=== PATIENT | female | born 1965 | race African-American/Black ===

== ENCOUNTER 2020-06-18 11:45 | Outpatient (NON) | payer OTHER, SELFPAY ==
[2020-06-19 13:29] LABS: SARS-CoV-2 RNA PCR Negative
== END 2020-06-18 11:46 ==
LOC: ANHCOVIDDT 11:48
PROVIDERS: Visit Provider Family Medicine
DX: R68.89 Other general symptoms and signs (principal); Z20.822 Contact with and (suspected) exposure to COVID-19
CPT/HCPCS: C9803; U0003; U0005

== ENCOUNTER 2023-10-25 11:44 | Outpatient (CLI) | payer OTHER, SELFPAY ==
[2023-10-25 12:10] LABS: Hematocrit 40.2 % (37.0-47.0); Hemoglobin 13.2 g/dL (12.0-15.0); Mean Corpuscular HGB Conc 32.8 g/dl (32-36); Mean Corpuscular Hemoglobin 28.1 pg (26-34); Mean Corpuscular Volume 85.5 fl (80-100); Mean Platelet Volume 11.1 fl (7.4-10.4); Platelet Count Result 224 k/mm3 (150-375); Red Cell Distribution Width 13.7 % (11.5-14.5)
[2023-10-25 13:03] LABS: Albumin Level 4.3 g/dL (3.5-5.1); Anion Gap 7 mmol/L (4-12); Blood Urea Nitrogen 15 mg/dL (7-17); Calcium 9.2 mg/dL (8.4-10.2); Carbon Dioxide 27 mmol/L (22-30); Chloride 109 mmol/L (98-107); Estimated Glomerular Filt Rate > 60; Glucose 88 mg/dL (65-110); Potassium 3.7 mmol/L (3.4-5.0); Sodium 143 mmol/L (137-145)
[2023-10-26 00:45] LABS: Prealbumin 17.9 mg/dL (17.6-36.0)
[2023-10-26 03:00] LABS: Iron 89 ug/dL (37-170)
[2023-10-29 11:08] LABS: Vitamin B1 34 nmol/L (8-30)
== END 2023-10-25 11:45 | disposition home or self-care (01) ==
LOC: ANHLAB 11:48
PROVIDERS: Visit Provider Surgery Plastic and Reconstructive Surgery
DX: R63.4 Abnormal weight loss (principal)
CPT/HCPCS: 36415; 80048; 82040; 83540; 84134; 84425; 85027

== ENCOUNTER 2023-11-09 07:36 | Outpatient (CLI) | payer OTHER, SELFPAY ==
--- NOTE | 2023-11-09 07:49 | ECG_ITS ---
Test Date: 2023-11-09 08:02:28 Measurements Intervals [place] Rate: 57 P: 43 AR: 172 QRS: -14 QRSD: 105 T: 12 QT: 431 QTc: 422 Interpretive Statements SINUS BRADYCARDIA WITH SINUS ARRHYTHMIA POSSIBLE LEFT ATRIAL ENLARGEMENT [-0.1mV P WAVE IN V1/V2] LOW QRS VOLTAGE IN PRECORDIAL LEADS [QRS DEFLECTION < 1.0 mV IN CHEST LEADS] PATTERN CONSISTENT WITH PULMONARY DISEASE POSSIBLE LEFT VENTRICULAR HYPERTROPHY [VOLTAGE CRITERIA PLUS LAE OR QRS WIDENING] POSSIBLE SEPTAL MYOCARDIAL INFARCTION [30 ms Q WAVE IN V1/V2], OF INDETERMINATE AGE NONSPECIFIC T-WAVE ABNORMALITY ABNORMAL ECG No previous ECG available for comparison Electronically Signed On 11-09-2023 10:58:00 CDT by Maurisio Quevedo M.D.
== END 2023-11-09 07:37 | disposition home or self-care (01) ==
PROVIDERS: PCP Physician Assistant; Visit Provider Surgery Plastic and Reconstructive Surgery
DX: Z41.1 Encounter for cosmetic surgery (principal); R94.31 Abnormal electrocardiogram [ECG] [EKG]
CPT/HCPCS: 93005

== ENCOUNTER 2023-11-15 01:43 | Day surgery (SDC) | payer OTHER, SELFPAY ==
[2023-11-08 09:49] VITALS: BMI 39.3
--- NOTE | 2023-11-08 09:50 | PC.NURSE ---
Addendum entered by Mikhail Wu RN 11/08/23 10:21: We will need a urine specimen morning of surgery so don't use waiting room bathroom, wait until see a nurse. Original Note: Report to the Outpatient Waiting Room, entrance under the green pavilion located off [facility], at time _0600_ on date _[id number]_. Planned Procedure Time: _0730_. Time changes happen often and if your time is changed the preop area will call you the afternoon before. - You and your visitor will be asked to self-screen and do not enter if you have any COVID symptoms. - A mask is optional within the hospital at this time. Patients may have clear liquids (water, carbonated beverages, clear teas, apple juice) until 3 hours prior to surgery with a maximum of 20 ounces. - No food from midnight until time of surgery Take the following medications with a SIP of water the morning of surgery: ____None DO NOT STOP ANY OF YOUR OTHER PRESCRIPTION MEDICATIONS PRIOR TO SURGERY ?EXCEPT THE FOLLOWING Medications to discontinue per physician ___Multivitamin____ Date to take last dhiu___[phone] Please no make-up, nail arabic, hairspray, perfume, deodorant, or body powder the day of surgery. No jewelry (including any body piercings) or valuables the day of surgery, leave them at home. Please take a shower or bath the night before, or the morning of, surgery with an antibacterial soap. Wear comfortable, loose fitting clothing. - Jewelry must be removed prior to entering the operating room. Rings and piercings that are not removed may be cut off. - The hospital will not accept responsibility for valuables. - Please leave all valuables, including medications, at home the day of surgery. If you are going home after surgery, a licensed auto parts delivery driver must drive you home. - NO public transportation without another adult if you receive anesthesia. - We recommend that an adult stay with you for 24 hours following discharge. - We also recommend that you do not drive, make important decision, drink alcoholic beverages, or take any drugs that were not prescribed by your health care provider for at least 24 hours after your discharge time. Follow any additional instructions given to you from your surgeon. If you or anyone in your household have experienced Covid symptoms in the past week, please notify your surgeon or the nurse liaison at the phone number below for possible testing. Telephone instructions given to __Ani__and asked if any additional questions and then verbalized understanding. Patient advised to call surgeon office or pre surgery nurse liaison [phone] if any additional questions.
[2023-11-15] VITALS (17 sets, daily range): BP systolic 72–190; BP diastolic 44–101; PULSE 59–92; RESP 12–20; TEMP 36.1–36.4; O2SAT 94–100
--- NOTE | ~2023-11-15 | XR_ITS ---
EXAMINATION: XR fluoroscopy no charge DATE: 11/15/2023 10:25 INDICATION: Foreign body. TECHNIQUE: 2 intraoperative fluoroscopic views of the abdomen were obtained. I was not present. Fluor oscopy exposure time was 5 seconds. COMPARISON: None. FINDINGS: The first image demonstrates a needle overlying the lower chest. The second image demonstra christie removal of the needle. Multiple sunita are noted. IMPRESSION: 1. Foreign body status post removal. Reviewed, dictated and finalized at location A.
[2023-11-15 06:24] LABS: Urine Cotinine NEGATIVE
--- NOTE | 2023-11-15 06:46 | WPDANESEPPF ---
Anes - Initial Pre Proc Eval Procedure: Operation Date: 11/15/23 07:30 Proposed Procedures p Posterior Body Lift, - Bryce Villagran MD s Bra Roll Excision, - Bryce Villagran MD s Bilateral Medial Thigh Lift - Bryce Villagran MD Date/Time: 11/15/23 06:46 Surgeon: Bryce Villagran MD Pre Op Diagnosis: skin laxity Patient Data Age: 58 Gender: F Height: 1.68 m Weight: 110 kg Last Vital Signs Temp 97.4 F L 11/15/23 06:00 Pulse 59 L 11/15/23 06:00 BP 147/77 H 11/15/23 06:00 Pulse Ox 100 11/15/23 06:00 O2 Del Method Room Air 11/15/23 06:00 Allergies Allergy/AdvReac Type Severity Reaction Status Date / Time codeine Allergy Intermediate Rash Verified 11/15/23 06:11 aspirin AdvReac Mild Nausea and Verified 11/15/23 06:11 Vomiting Home Medications Medication Instructions Recorded Confirmed Type multivitamin 1 tablet PO DAILY 11/08/23 11/08/23 History Laboratory Tests 11/15/23 06:09 Cotinine Negative Patient hx anesthesia problems: post op nausea/vomiting Family hx anesthesia problems: none Results Review: All pre-operative results and documents have been reviewed as part of the pre-operative evaluation. [facility] Social History Social History Smoking status: Never smoker Living arrangements: with family Spiritual care concerns: No Anes - Eval Final PreProcedure Day of Procedure 11/15/23 06:46 Patient weight: obese Heart: regular rate and rhythm Lungs: clear to auscultation Airway: Mallampati scale and special considerations (Missing many in the post apsect, none loose. ) Neurological: alert and oriented Last oral intake: >/= 8 hours ASA classification: II Emergent: no Anesthetic plan: proceed Anesthesia type and monitoring: general ETT and standard monitoring Results Review: All pre-operative results and documents have been reviewed as part of the pre-operative evaluation. Active w walking, caring for children, no cp or sob. Informed Consent: The patient's anesthetic plan and its attendant risks and benefits were discussed with the patient/family/POA. Questions were solicited and answers provided to the satisfaction of the patient/family/POA.
[2023-11-15] MEDS: LACTATED RINGERS 1,000 ML 30 ML IV CONT ×2 (06:50→16:10)
[2023-11-15] MEDS: SCOPOLAMINE 1 MG PATCH 1 PATCH TRANSDERM (06:50)
--- NOTE | 2023-11-15 06:51 | WPDHPUPDATE1 ---
History and Physical Update Update Date/Time: 11/15/23 06:51 History and Physical has been reviewed, including an updated exam of the patient. There are NO changes in the patient's condition. Risks, benefits, and alternatives have been discussed and questions answered. Patient agrees to proceed with procedure.
--- NOTE | 2023-11-15 06:52 | W.PM.PROC2 ---
Procedure Note - Detailed Date of Procedure 11/15/23 Pre-op Diagnosis skin laxity Post-op Diagnosis Same Procedure Performed 1. Posterior body lift with suction lipectomy 2. Bra roll excision with suction lipectomy 3. Bilateral Medial thigh lift Surgeon Bryce Villagran MD Anesthesia General Findings Tissue removed: 2786.5 grams Lipoaspirate 2,500 cc Description of Procedure They are here today for the above procedures. History of abdominoplasty completed elsewhere. Previously and again today the risks, benefits, alternatives were discussed in extensive detail. I wanted them to be very realistic about the risks involved as well as expectations. We discussed limitations of the procedure and where she would still have excess. Discussed complexity given history of weight loss and BMI. We discussed aftercare and what to monitor for. I was very upfront about the risks of wound breakdown leading to loss of skin, open wounds, and need for additional procedures with permanent abdominal deformity. We discussed DVT/PE risks and management. Made sure answered all of their questions to their satisfaction today and consent was obtained. They were marked in the preoperative holding area with their verification. The patient was taken to the operating room. Anesthesia was provided by anesthesiology. A Miller catheter was started. Placed prone on the operating room table with care taken to protect from injury. Prepped and draped in a standard sterile fashion. A surgical time-out was taken. Stab incisions were made and tumescent solution was infiltrated. Once adequate time was allowed for hemostasis a 5mm basket and 3mm multi hole cannula were utilized to complete suction lipectomy based on S.A.F.E. technique in multiple planes and passes. Suction lipectomy continued to result based on pre-operative planning, intra-operative observation, and rolling pinch test which were in full agreement. Bra roll excision A 10 blade was used to make the upper incision and dissection was continued inferior elevating what we necessary for closure. I placed patient in slight jackknife position and excised intervening tissue. This was closed with 3 point suture with 2-0 Vicryl followed 2-0 PDO strattafix, 3-0 stratafix ,running subcuticular 4-0 Monocryl, and tissue glue. Laterally sunita were placed for turning. Posterior body lift A 10 blade was used to make the upper incision and dissection was continued inferior elevating what we necessary for closure. I placed patient in slight jackknife position and excised intervening tissue. This was closed with 3 point suture with 2-0 Vicryl followed 2-0 PDO strattafix, 3-0 stratafix ,running subcuticular 4-0 Monocryl, and tissue glue. Laterally sunita were placed for turning. Patient was then placed supine with care taken to protect from injury. Completion bra roll excision Continued excision to lateral border of breast based on planned future surgeries as discussed with the patient and her . This was closed with 3 point suture with 2-0 Vicryl followed 2-0 PDO strattafix, 3-0 stratafix ,running subcuticular 4-0 Monocryl, and tissue glue. Completion posterior body lift Continued excision to previous abdominoplasty scar. 15 Wilian drain was placed and fed posterior. This was closed with 3 point suture with 2-0 Vicryl followed 2-0 PDO strattafix, 3-0 stratafix ,running subcuticular 4-0 Monocryl, and tissue glue. Medial Thigh lift Stab incisions were made and I tumesced with a tumescent solution. Once adequate time for hemostasis suction lipectomy was with a 5 mm basket cannula based on S.A.F.E. technique. This was completed based on preoperative planning, intraoperative observation, and rolling pinch test which was in full agreement. I completely de-fatted the planned resection area and a strip avulsion technique was completed. Starting proximal to distal a 10 blade was used to excise the interve
[2023-11-15] MEDS: ceFAZolin 2 GM/D5W 50 ML 2 GM/50 ML BAG IVPB ×2 (07:31→11:29)
[2023-11-15] MEDS: TRANEXAMIC ACID 1,000MG/ISO100 1,000 MG/100 ML BAG 200 MG IVPB (07:42)
--- NOTE | 2023-11-15 10:34 | SUR.OPER ---
At 1015, personnel at surgical field noticed a suture needle had broken during closure. Needle was presumed to be patient's adipose tissue. Radiology was notified and a C-Arm portable X-Ray was taken. Needle was located during fluoroscopy. Surgeon retrieved suture needle piece from patient's tissue. Needle pieces were matched to ensure no pieces had been missed. C-Arm fluoroscopy confirmed no needle pieces were present in patient's tissue. A needle count was performed by Scrub and Nuclear Weapons Custodian and surgeon was notified of correct count. Patient's vitals were stable throughout search.
[2023-11-15] MEDS: LACTATED RINGERS IRRIG 1,000 ML, LIDOCAINE HCL 1% LOCAL INJ 50 ML, EPINEPHrine HCL INJ ... INFILTRATE (14:06)
[2023-11-15] MEDS: ceFAZolin SODIUM 1 GM VIAL IV PUSH (15:35)
--- NOTE | 2023-11-15 19:08 | SUR.PHASEI ---
RN tried to call anesthesia 2 times to inform about BP but the ELECTRIC DISTRIBUTION ENGINEER is in a .
[2023-11-15] MEDS: MEPERIDINE HCL INJ (*CRX) 50 MG/ML AMPUL 25 MG IV PUSH (19:20)
--- NOTE | 2023-11-15 19:46 | PC.NURSE ---
This patient arrived to room #288 via stretcher. Patient transferred to bed and educated on unit policies and procedures at this time. Call light given.
--- NOTE | 2023-11-15 19:56 | PC.NURSE ---
1955- patient reported being unable to drink from a straw and that this is her baseline. Cup without straw provided
[2023-11-15] MEDS: oxyCODONE/ACETAMINOPHEN (*CRX) 5-325 MG TABLET PO (21:01)
[2023-11-15] MEDS: DOCUSATE SODIUM 100 MG CAPSULE PO (21:02)
[2023-11-16] VITALS (7 sets, daily range): BP systolic 81–116; BP diastolic 48–68; PULSE 59–105; RESP 14–18; TEMP 37.2–38.5; O2SAT 98–100
--- NOTE | 2023-11-16 | PC.NURSE ---
0000- Patient refused scheduled PO Toradol and stated told her to only take Tylenol Educated patient on Dr's orders and patient still declined at this time. 0205- Patient called out requesting toradol be given, See MAR for further documentation.
[2023-11-16] MEDS: KETOROLAC 10 MG TABLET PO ×2 (02:05→09:08)
--- NOTE | 2023-11-16 02:44 | PC.NURSE ---
Midnight- went to assess pt with primary RN Leo, pt needing to get up oob to use bathroom. While pt was in bed, assessment was made ny myself and Leo RN- left inner thigh incision open approx 2 inches, adipose tissue exposed, also abdominal dressings were saturated with old red blood. Reinforced these areas with telfa guaze and paper tape. Pt up to bathroom with assist of two. Pt with somewhat confused speech, unable to understand at times. States pain was ok that her back was the main source of discomfort and that the pain was a nerve type of pain. Pt offered pain medication but declined at this time. Assisted pt back into bed after voiding. brush fabrication supervisor was called as well as nurse Cathie fuller to collaborate on pts condition. brush fabrication supervisor assessed pt and stated that she was not sure that pt was appropriate for this unit and that Dr. Null should be notified of pts condition. This RN called exchange and was called back after 2 calls placed a half an hour apart by Niya Gutiérrez cosmetic steam fitter supervisor maintenance/ pt attending ambulatory care- this RN explained that left inner thigh incision was open approx 2 inches to adiopose tissue. Niya stated this should not be open and instructed this RN to put a thin layer of vaseline over open area and place guaze on top with an maryam wrap to secure. Niya also stated that she would have Dr. Null round on this pt first in the am around [id number]. This RN also asked Niya if pt was ok to continue getting up oob with these extensive incisions and she stated yes, he wants her walking. Also informed Niya that pt is requesting IV fluids along with her po fluids. Niya stated that Dr. Null will not be ordering fluids on pt. this nurse, leo RN and Shamika RN performed wound care as instructed to pts left upper thigh/leg and leg. Thin layer vaseline applied to open area, covered with guaze and maryam wrap placed to secure. Pt stated she was ok after wound care performed. Will continue to monitor.
--- NOTE | 2023-11-16 04:00 | PC.NURSE ---
0400- Entered room at 0400 as Penelope RN called Rapid response on patient due to low BP and elevated T Patient was woken up out of sleep and initially slow to orient. 404 BP 116/68 manual Patient now A/Ox3 CUSTOMER SERVICE REPRESENTATIVE TEACHER assessing patient at this time 040 - BP 93/[address] Carina Nelson at bedside New orders received at this time for Stat CBC/BMP and 1L Bolus NS and to recheck BP once Bolus complete
[2023-11-16] MEDS: SODIUM CHLORIDE 0.9% IV 1,000 ML 999 ML IV CONT (04:10)
[2023-11-16 04:22] LABS: Basophils Percent Auto 0.3 % (0.2-1.2); Eosinophils Percent Auto 0.1 % (0-4.4); Hematocrit 28.4 % (37.0-47.0); Hemoglobin 9.2 g/dL (12.0-15.0); Immature Granulocyte Absolute 0.01 K/mm3 (0.00-0.031); Immature Granulocyte Percent A 0.1 % (0-0.5); Lymphocytes Absolute Auto 2.16 K/mm3 (0.9-3.2); Mean Corpuscular HGB Conc 32.4 g/dl (32-36); Mean Corpuscular Hemoglobin 28.4 pg (26-34); Mean Corpuscular Volume 87.7 fl (80-100); Mean Platelet Volume 11.3 fl (7.4-10.4); Monocytes Absolute Auto 0.5 K/mm3 (0.1-0.6); Monocytes Percent Auto 7.1 % (2.6-8.5); Neutrophils Absolute Auto 4.1 K/mm3 (1.3-6.7); Neutrophils Percent Auto 60.4 % (45.5-73.1); Platelet Count Result 159 k/mm3 (150-375); Red Blood Count 3.24 M/mm3 (4.2-5.4); Red Cell Distribution Width 14.3 % (11.5-14.5); White Blood Count 6.8 K/mm3 (4.5-10.0)
[2023-11-16 04:32] LABS: Anion Gap 4 mmol/L (4-12); Blood Urea Nitrogen 15 mg/dL (7-17); Calcium 8.2 mg/dL (8.4-10.2); Carbon Dioxide 25 mmol/L (22-30); Chloride 104 mmol/L (98-107); Estimated CRCL calculation 97 ml/min; Estimated Glomerular Filt Rate > 60; Glucose 116 mg/dL (65-110); Potassium 4.3 mmol/L (3.4-5.0); Sodium 133 mmol/L (137-145)
[2023-11-16] MEDS: oxyCODONE/ACETAMINOPHEN (*CRX) 5-325 MG TABLET PO ×2 (05:00→11:54)
--- NOTE | 2023-11-16 05:54 | PC.NURSE ---
0350- Entered pts room to assess VS- pt very lethargic, garbled speech, VS-101.3, 81/48, 59, 100%, 14 resp. Rapid response called.
--- NOTE | 2023-11-16 05:56 | PC.NURSE ---
0410- manual Bp 116/68- rapis response team at bedside and aware of this reading
--- NOTE | 2023-11-16 06:34 | PC.NURSE ---
0415- Automobile Detailer notified this RN of call initiated to Dr. Staley at this time, exchange reached and page. [phone]- 2nd call initiated by slate splitting supervisor at this time with pbx operator stating page being sent to 0450- This RN recieved call from Niya Gutiérrez who stated her title as service crew leader/child care provider . Briefed Niya on events of rapid response, patients vitals, lab results, wound condition etc. Niya then stated that page would be sent to Dr. Villagran. I stated we have already been waiting for response from MD and requested timeframe of when to expect response back. Niya replied I have no idea how long it will be . Call ended [phone]- Report given to Dr. Villagran on patients condition and events of rapid response. No new orders given at this time and MD states he will be in shortly to round on patient.
--- NOTE | 2023-11-16 06:35 | WPDPN ---
Progress Note: A&P Assessment and Plan (1) Skin laxity: Code(s): L57.4 - Cutis laxa senilis Status: Acute Assessment and Plan: Doing well after: 1. Posterior body lift with suction lipectomy 2. Bra roll excision with suction lipectomy 3. Bilateral Medial thigh lift Given the concerns of low blood pressure overnight will monitor today for a period of time. She has never had symptoms and feels well. Further no evidence of active bleeding. She is going to f/u with her PCP as well. Will plan for discharge later today. Today we had a lengthy discussion about the care. What to monitor for. We discussed activity limitations. This was a lengthy open-ended conversation making sure I answered all questions. We discussed what is an emergency and when to proceed to the ER / dial 911. Call with all other questions or concerns. Voiced a clear understanding. I will see them back. (2) Localized adiposity: Code(s): E65 - Localized adiposity Status: Acute Subjective Date/time seen: 11/16/23 06:35 Interval history: She is post-op: 1. Posterior body lift with suction lipectomy 2. Bra roll excision with suction lipectomy 3. Bilateral Medial thigh lift Overnight she was doing well. This morning she had was noted by nursing to have low BP while sleeping. When waking she was quickly alert and doing well. Rapid response called and fluid provided / labs drawn. The patient and her state that she was doing well and has never had symptoms. Even felt well during the time the rapid response was called. No f/c. No n/v. No SOB. No chest pain. No calf tenderness. She has been ambulating regularly to the bathroom completely asymptomatic. Review of Systems Review of Systems: All systems reviewed & are unremarkable except as noted in HPI and below Exam Narrative: Alert & Oriented NOD Respiratory unlabored Back is healing well. No signs of infection. No hematoma. No seroma. Good color and capillary refill. Drains removed (minimal drainage). Left proximal thigh with 2mm x 2cm open wound. Otherwise healing well. No signs of infection. No hematoma. No seroma. Good color and capillary refill. No calf tenderness. Negative Mabel's. Objective Data Vital Signs Vital Signs: Vital Signs - 24 hr 11/15/23 16:10 11/15/23 16:25 11/15/23 16:40 Temperature 36.4 C Pulse Rate 74 66 83 Respiratory Rate 12 14 18 Blood Pressure 72/44 L 124/78 122/70 Pulse Oximetry 95 95 95 Oxygen Delivery Simple Face Mask Simple Face Mask Simple Face Mask Oxygen Flow Rate 8 8 8 11/15/23 16:55 11/15/23 17:10 11/15/23 17:25 Temperature Pulse Rate 77 90 80 Respiratory Rate 18 20 20 Blood Pressure 129/87 145/97 H 167/90 H Pulse Oximetry 94 100 97 Oxygen Delivery Nasal Cannula Nasal Cannula Nasal Cannula Oxygen Flow Rate 4 4 4 11/15/23 17:35 11/15/23 17:50 11/15/23 18:05 Temperature Pulse Rate 59 L 81 86 Respiratory Rate 14 17 18 Blood Pressure 172/93 H 179/96 H 178/99 H Pulse Oximetry 97 99 99 Oxygen Delivery Nasal Cannula Room Air Nasal Cannula Oxygen Flow Rate 4 4 11/15/23 18:20 11/15/23 18:35 11/15/23 18:50 Temperature Pulse Rate 84 92 88 Respiratory Rate 18 20 18 Blood Pressure 175/94 H 173/97 H 170/95 H Pulse Oximetry 98 96 99 Oxygen Delivery Nasal Cannula Room Air Room Air Oxygen Flow Rate 2 11/15/23 19:05 11/15/23 19:20 11/15/23 19:30 Temperature Pulse Rate 88 86 70 Respiratory Rate 16 18 12 Blood Pressure 187/101 H 190/95 H 149/78 H Pulse Oximetry 100 99 94 Oxygen Delivery Room Air Room Air Room Air Oxygen Flow Rate 11/15/23 19:56 11/16/23 00:00 11/16/23 04:43 Temperature 36.1 C L 37.2 C 38.5 C H Pulse Rate 86 92 105 H Respiratory Rate 15 18 18 Blood Pressure 134/56 L 115/60 102/60 Pulse Oximetry 98 100 Oxygen Delivery Room Air Oxygen Flow Rate 11/16/23 03:50 Temperature 38.5 C H Pulse Rate 59 L Respiratory Rate 14 Blood Pressure 81
--- NOTE | 2023-11-16 07:06 | PM.DS ---
DS: Admitting Diagnosis Discharge Date 11/16/2023 Admitting Diagnosis Skin laxity with localized adiposity DS: Discharge Diagnosis Discharge Diagnosis (1) Localized adiposity: Code(s): E65 - Localized adiposity Status: Acute (2) Skin laxity: Code(s): L57.4 - Cutis laxa senilis Status: Acute DS: Summary Hospital Course Hospital Course: Underwent: 1. Posterior body lift with suction lipectomy 2. Bra roll excision with suction lipectomy 3. Bilateral Medial thigh lift Early this morning had lower BP and called rapid response. Patient states she has felt well throughout without symptoms. Monitored and she has no SOB. No CP. She has been ambulating without concern. Tolerating diet. Pain controlled. Small open are left proximal medial thigh open wound. Care discussed. Had a lengthy discussion about what is an emergency and when to proceed with ER / dial 911. Call with any questions or concerns. Time Spent with Patient Time attestation: Total time spent providing and/or coordinating discharge services: Exam Narrative: Alert & Oriented NOD Respiratory unlabored Back is healing well. No signs of infection. No hematoma. No seroma. Good color and capillary refill. Drains removed (minimal drainage). Left proximal thigh with 2mm x 2cm open wound. Otherwise healing well. No signs of infection. No hematoma. No seroma. Good color and capillary refill. No calf tenderness. Negative Mabel's. DS: Data Data Completed and Pending Labs on day of discharge: Labs from last 24 hours 11/16/23 04:18 WBC 6.8 RBC 3.24 L Hgb 9.2 L D Hct 28.4 L MCV 87.7 MCH 28.4 MCHC 32.4 RDW 14.3 Plt Count 159 MPV 11.3 H Immature Gran % (Auto) 0.1 Neut % (Auto) 60.4 Lymph % (Auto) 32.0 [place] % (Auto) 7.1 Eos % (Auto) 0.1 Baso % (Auto) 0.3 Lymph # (Auto) 2.16 [place] # (Auto) 0.5 Eos # (Auto) 0.0 Baso # (Auto) 0.0 Abs Immat Gran (auto) 0.01 Absolute Neuts (auto) 4.1 Absolute Nucleated RBC 0.000 Nucleated RBC % 0.0 Sodium 133 L Potassium 4.3 Chloride 104 Carbon Dioxide 25 Anion Gap 4 BUN 15 Creatinine 0.70 Estim Creat Clear Calc 97 Estimated GFR > 60 Glucose 116 H Calcium 8.2 L Discharge Plan Discharge Patient Disposition: Home, Self-Care Discharge Instructions: POST OPERATIVE DISCHARGE INSTRUCTIONS BRYCE VILLAGRAN M.D. [facility] [address] [place] [address] [address] for 24 hours after anesthesia and while you are taking pain medication. Take all prescribed medication as directed Diet as tolerated. No lifting or activity that raises blood pressure for 48 hours. Regular walking / ambulation. May shower 24 hours after surgery. Once you shower do not take pain medication before showering as the combination of medication and heat may cause you to feel dizzy or pass out. No pools or tubs for 2 weeks. Slowly stand up straight as tolerated. No straining or lifting more than 20 pounds. If no bowel movement within 24 hours may use laxative. Call with any questions or concerns. Dressing Care: Continue abdominal binder / foam and thigh wraps 23 hours per day. You may adjust as needed for comfort. If you have any questions or concerns, please call the office . If it is after hours you will be directed to the resource paraprofessional exchange. Shortness of breath, chest pain, or other medical emergency dial 911 / proceed to the Emergency Room. Stand Alone Forms: General Discharge Instructions Follow-up/Referrals: Bryce Villagran MD [Physician] - Other (Tomorrow 11/16/2023) Discharge Medications: Continued multivitamin Tablet 1 tablet PO DAILY
[2023-11-16] MEDS: MORPHINE SULFATE (*CRX) 2 MG/ML INJ IV PUSH (07:10)
[2023-11-16] MEDS: MULTIVITAMINS THERAPEUTIC TAB (*BKC) 1 TABLET PO (09:08)
[2023-11-16] MEDS: DOCUSATE SODIUM 100 MG CAPSULE PO (09:08)
[2023-11-16] MEDS: ENOXAPARIN 40 MG/0.4 ML SYRINGE SUB-Q (09:08)
--- NOTE | 2023-11-16 10:24 | PC.NURSE ---
MDs office called due to concerning opening of left inner, upper thigh. Wound was found to be approximately 2 inches in length this morning and at the time of phone call was found to be nearly 5 inches in length. Spoke with nurse Valerie who expressed that this is normal and asked for me to take a picture and email it securly to her. I explained that I did not feel comfortable with this because that would require this RN to take the picture on my personal cell phone. She expressed that as long as I sent it securely through email that I could do this. I again expressed my concerns of being uncomfortable with this as the incision is close to the patients vaginal area. Valerie again assured me that it would be okay to do so and to cover up patients vaginal area. I once again expressed that I did not feel comfortable with this and asked that someone from their medical team come see the patient as the incision was of some concern to this RN. Valerie informed me that she would come up to evaluate patient due to MD being in surgery at this time. This RN then informed Vega Vega, director of OB, of the current situations and of my concerns. Vega Vega informed me that she would verify whether or not Valerie has privileges at our facility and it was found that she does not. Vega Vega informed me to contact the OR to inform MD of my concerns and ask that he come evaluate the patient. This RN completed this task. MD called shortly after and spoke with Valerie at the nurses station regarding the patients condition. MD confirmed with Valerie that this was normal and that the separation was noted during his visit this AM. Once conversation was over, Valerie gave this RN instruction on how to care for incision. This RN was instructed to remove all bandages and dressings from patients legs and redress them using telfa, vaseline, and maryam bandages. This RN as well as Meme NEAL did as instructed and patients incisions were redressed. This RN also redressed incision on bilateral lower abdomen as the current dressing was falling off. Once dressing was removed the left lower abdomen was found to have a small area of separation as well. Incisions were covered with telfa lightly lined with vaseline and secured with paper tape. Patient expressed that she felt much more comfort with the new dressings. This RN gave wound education to patient and significant other at this time. This RN gathered telfa, vaseline, maryam bandages, and paper tape for patient to take home with her.
--- NOTE | 2023-11-16 14:19 | WPDANESPN ---
Anes - Prog Note Post-Op Date/Time: 11/16/23 14:19 Cardiovascular status: normal Respiratory status: normal Airway patency: baseline Mental status: baseline Post-Op hydration status: normal Vital Signs: Last Vital Signs Temp 37.3 C 11/16/23 12:07 Pulse 80 11/16/23 12:07 Resp 16 11/16/23 12:07 BP 110/62 11/16/23 12:07 Pulse Ox 98 11/16/23 12:07 O2 Del Method Room Air 11/16/23 12:00 O2 Flow Rate 2 11/15/23 18:20 Pain Score (VAS): 0/10 I/O: Intake & Output 11/15/23 11/16/23 11/16/23 23:59 07:59 15:59 Intake Total 500 1580 Output Total 150 200 Balance 350 1380 Laboratory Tests 11/16/23 04:18 11/16/23 04:18 11/16/23 04:18 WBC 6.8 RBC 3.24 L Hgb 9.2 L D Hct 28.4 L MCV 87.7 MCH 28.4 MCHC 32.4 RDW 14.3 Plt Count 159 MPV 11.3 H Immature Gran % (Auto) 0.1 Neut % (Auto) 60.4 Lymph % (Auto) 32.0 [place] % (Auto) 7.1 Eos % (Auto) 0.1 Baso % (Auto) 0.3 Lymph # (Auto) 2.16 [place] # (Auto) 0.5 Eos # (Auto) 0.0 Baso # (Auto) 0.0 Abs Immat Gran (auto) 0.01 Absolute Neuts (auto) 4.1 Absolute Nucleated RBC 0.000 Nucleated RBC % 0.0 Sodium 133 L Potassium 4.3 Chloride 104 Carbon Dioxide 25 Anion Gap 4 BUN 15 Creatinine 0.70 Estim Creat Clear Calc 97 Estimated GFR > 60 Glucose 116 H Calcium 8.2 L Post-procedural complaints: none Patient Feedback: Patient satisfied with anesthetic care.
== END 2023-11-16 14:32 | disposition home or self-care (01) ==
LOC: ANHSURGERY 07:30 → ANHOB2 19:45
PROVIDERS: PCP Physician Assistant; Visit Provider Surgery Plastic and Reconstructive Surgery
PROC: (CPT 15832; principal; 2023-11-15 07:30)
PROC: (CPT 15832; 2023-11-15 07:30)
PROC: (CPT 15832; 2023-11-15 07:30)
DX: Z41.1 Encounter for cosmetic surgery (principal); L57.4 Cutis laxa senilis; E65 Localized adiposity; E66.9 Obesity, unspecified; Z68.39 Body mass index [BMI] 39.0-39.9, adult; Z98.890 Other specified postprocedural states; Z98.84 Bariatric surgery status
CPT/HCPCS: 15832; 15879; 15877; 15830; 15839; 36415; 80048; 80307; 85025; 99199; A9270; J0171; J0330; J0690; J1100; J1170; J1650; J2175; J2250; J2270; J2371; J2405; J2704; J3010; J7030; J7120

== ENCOUNTER 2025-01-01 16:39 | Outpatient (NON) | payer OTHER, SELFPAY ==
--- OUTSIDE RECORDS SUMMARY | 2025-01-01 16:50 | XMS_ITS | Encounter Summary ---
Author Organization [facility] Address [address] [place] [address] Care Team Providers Care Credit Reporter Name Role Phone Yisel Chavez, ping pong table assembler Provider Unavailable Elizabeth Randle MD Primary Care Provider [phone] Joana Freed PA-C Primary Care Provider [phone] Encounter Details Date Type Department Care Team (Late st Contact Info) Description 05/30/2017 Hosp Visit [facility] [place]patient [place] [address] Ani Mendosa S, PT [place], [place] [id number] Social History Tobacco Use Types Packs/Day Years Used Date Smoking Tobacco: Never Assessed Comments Unknown Sex and Gender Information Value Date Recorded Sex Assigned at Not on file Legal Sex Female 8:33 PM CDT Gender Identity Not on file Sexual Orientation Not on file documented as of this encounter Plan of Treatment Not on file documented as of this encounter Visit Diagnoses Not on filedocumented in this encounter Care Teams Credit Reporter Relationship Specialty Start Date End Date Yisel Chavez APNP, VAL PCP - General 03/11/16 9 Elizabeth Randle MD [facility] [address] [place] [phone] PCP - General FAMILY PRACTICE 06/24/18 06/20/23 Joana Freed PA-C . [facility] [address] [place] [id number] PCP - General NURSE PRACTITIONER 06/21/23 documented as of this encounter
--- OUTSIDE RECORDS SUMMARY | 2025-01-01 16:50 | XMS_ITS | Encounter Summary ---
Author Organization [facility] Address [address] [place] [address] Care Team Providers Care Electric Motor Rebuilder Name Role Phone Yisel Chavez, hop worker Provider Unavailable Elizabeth Randle MD Primary Care Provider [phone] Joana Freed PA-C Primary Care Provider [phone] Encounter Details Date Type Department Care Team (Late st Contact Info) Description 07/04/[address] [facility] [place] [address] Talita Dillon, [place] [address] Social History Tobacco Use Types Packs/Day Years [...] on filedocumented in this encounter Care Teams Electric Motor Rebuilder Relationship Specialty Start Date End Date Yisel Chavez APNP, RN PCP - General 03/11/16 9 Elizabeth Randle MD . [facility] [address] [place] [phone] PCP - General FAMILY PRACTICE 06/24/18 06/20/23 Joana Freed PA-C [facility] [address] [place] [address] PCP - General NURSE PRACTITIONER 06/21/23 documented as of this encounter
--- OUTSIDE RECORDS SUMMARY | 2025-01-01 16:50 | XMS_ITS | Clinical Summary ---
Author Organization [facility] Address [address] [place] [address] Care Team Providers Care Box Puller Name Role Phone Joana Freed PA-C Primary Care Provider [phone] Allergies Active Allergy Reactions Criticality Noted Date Comments Aspirin GI Upset 06/10/2019 Codeine Unknown 12/10/2020 Medications multivitamin with minerals liquid Take 15 mLs by mouth daily. Active vitamin D3, cholecalciferol , 1000 UNIT Tab tablet Take 1 tablet by mouth daily. Active albuterol (PROVENTIL) (2.5 MG/3ML) 0.083% nebulizer solution Inhale 3 mL 3 times a day by nebulization route as needed. Active Active Problems Problem Noted Date Diagnosed Date Lipoma 09/25/2017 Family History Medical History Relation Comments CT Brother [address] Brother 2 Heart Disease Brother 3 Heart Disease [address] Father Cancer Mother bladder ca Hypertension Mother Relation Status Comments Brother 1 Brother 2 Brother 3 Brother 4 Father Mother Social History Tobacco Use Types Packs/Day Years Used Date Smoking Tobacco: Never Passive Smoke Exposure: Past Smokeless Tobacco: Never Tobacco Cessation:Counseling Given: Not Answered Alcohol Use Standard Drinks/Week Comments No 0 (1 standard drink = 0.6 oz pur e alcohol) Comments No Sex and Gender Information Value Date Recorded Sex Assigned at Not on file Legal Sex Female 8:33 PM CDT Gender Identity Not on file Sexual Orientation Not on file Last Filed Vital Signs Vital Sign Reading Time Taken Comments Blood Pressure 155/79 10/24/2023 2:12 PM CDT Pulse 68 10/24/2023 2:12 PM CDT Temperature 37.2 C (99 F) 10/24/2023 2:12 PM CDT Respiratory Rate 20 10/24/2023 2:12 PM CDT Oxygen Saturation 99% 10/24/2023 2:12 PM CDT Inhaled Oxygen Concentration - - Weight 108.9 kg (240 lb) 10/24/2023 2:12 PM CDT Height 167.6 cm (5' 6) 10/24/2023 2:12 PM CDT Body Mass Index 38.74 10/24/2023 2:12 PM CDT Plan of Treatment Health Maintenance Due Date Last Done Comments Cervical Cancer Screening Pa p Smear (Age 30 to 64) Every 3 Years 1967 Annual Physical 11/04/1970 Hepatitis C 11/04/1985 Hepatitis B Vaccines (1 of 3 - 19+ 3-dose series) 11/04/1986 Cervical Cancer Screening Pa p with HPV Testing (Age 30 to 64) Every 5 Years 11/04/1997 Cervical Cancer Screening wi th HPV 11/04/1997 Pneumococcal Vaccine: 50+ Years (1 of 1 - PCV) 11/04/2017 Zoster Vaccines (1 of 2) 11/04/2017 Mammogram Screening 06/13/2021 06/13/2019, 06/21/2018 DTaP, Tdap and Td Vaccines ( 3 - Td or Tdap) 02/25/2023 02/25/2013, 04/02/2009 COVID-19 Vaccine (2023-2 5 season) 2024 Colorectal Cancer Screening Colonoscopy (10 Years) 07/18/2029 07/18/2019, 07/18/2019 Meningococcal B Vaccine Aged Out No l onger eligible based on patient's age to complete this topic Meningococcal Vaccine Aged Out No tyson tesfaye eligible based on patient's age to complete this topic RSV Immunizations Under 20 Months Aged Out No longer eligible b ased on patient's age to complete this topic Procedures Procedure Name Priority Date/Time Associated Diagnosis Comments COLONOSCOPY Routine 07/18/2019 3:03 PM FIRE POT OPERATOR MG SCREENING W WINSOME EVELYN DIGI Routine 06/13/2019 12:49 PM FIRE POT OPERATOR Breast cancer screening by mammogram from Last 3 Months or Most Recently Relevant to Health Maintenance Results * MG SCREENING W WINSOME EVELYN DIGI (06/13/2019 12:49 PM FIRE POT OPERATOR) Anatomical Region Laterality Modality Breast Bilateral Mammography 06/13/2019 6:08 PM FIRE POT OPERATOR Impressions 06/13/2019 6:13 PM FIRE POT OPERATOR =====IMPRESSION:===== No mammographic findings suggestive of malignancy. Assessment: ACR BI-RADS Category 2 - Benign. Recommendation: 1: Routine screening mammogram bilateral in 1 year Comments: A negative or benign mammography report should not delay follow-up or biopsy of a clinically significant finding and/or abnormality. Regions of dense breast tissue may obscure small or subtle neoplasms Interpreted By: Paramjit Arnold, 06/13/2019 6:08 PM Narrative 06/13/2019 6:13 PM FIRE POT OPERATOR Examination: Digital bilateral screening mammogram with 3-D tomosynthesis Exam Date/Time: 06/13/2019 12:14 PM Clinical history: No family history of breast cancer. No present breast related complaints. Comparison: 3 prior studies were available for comparison , including and ranging between 01/20/2014 and 06/21/2018 Technique: Digital screening mammography of both breasts was performed in addition to 3-D Tomosynthesis technique. This study was read with the assistance of a computer-aided detection system. Tissue density: The breast tissue contains scattered fibroglandular densities. Findings: No suspicious masses, or suspicious clustered microcalcifications are seen. Liane Cabezas MD MAMMO Final Result from Last 3 Months or Most Recently Relevant to Health Maintenance Insurance [employer] Care Teams Box Puller Relationship Specialty Start Date End Date Joana Freed PA-C PCP - General NURSE PRACTITIONER 06/21/23
--- OUTSIDE RECORDS SUMMARY | 2025-01-01 16:50 | XMS_ITS | Clinical Summary ---
Author Organization [facility] Address [address] [facility] [place] [address] Care Team Providers Care Special Services Coordinator Name Role Phone Joana Freed PA-C Primary Care Provider Source Comments [facility],non-owned Affiliates and Associated Physician Practices is amultiple site organization consisting of ambulatory clinics and hospital sitesin [place], [place], [place] and [place]. This disclosure is being madepursuant to the Care Everywhere program and may not contain all information available regarding this patient. Last updated 18.[facility] Allergies Active Allergy Reactions Criticality Noted Date Comments Aspirin GI Discomfort,Other High 07/09/2015 Other reaction(s): GI Upset, Stomach Pain - - Chocolate Flavor Other 07/16/2019 Other reaction(s): Unknown Codeine Swelling High 11/25/2019 Hydrocodone Swelling,Other High 10/26/2020 Medications * Be aware that medications may not be up to date on this document. Alwaysverify current medications with the patient. acetaminophen (TYLENOL) 325 MG tablet Take 2 (two) tablets by mouth every 6 hours as needed Active ergocalciferol (DRISDOL) 1.25 MG (02153 UT) capsule ergocalciferol (vitamin D2) 1,250 mcg (50,000 unit) capsule TAKE 1 CAPSULE BY MOUTH ONE TIME PER WEEK Active Multiple Vitamin (MULTI-VITAMIN S) TABS Take 1 (one) tablet by mouth once daily Active omeprazole (PRILOSEC) 20 MG capsule Take 1 (one) capsule by mouth once daily 2 Active nystatin (Mycostatin) 119320 UNIT/GM powder Nystop 100,000 unit/gram topical powder APPLY EXTERNALLY TO THE AFFECTED AREA TWICE DAILY 2 Active Calcium Citrate-Vitami n D (CALCIUM CITRATE CHEWY BITE PO) Take by mouth 2 times daily Active estradiol (Estrace) 0.1 MG/GM vaginal cream APPLY NIGHTLY TO VAGINA FOR 1 WEEK, THEN SUNDAY/SUNDAY/ Sunday 3 Active Semaglutide(0. 25 or 0.5MG/DOS) 2 MG/3ML Solution Pen-injector Inject 1 mg subcutaneously every 7 days Please use 0.25 mg weekly x 4, then increase to 0.5 mg weekly until f/u with Dr Ortega 3 mL 4 4 Active Active Problems Problem Noted Date Diagnosed Date Obesity complicating pregnan cy, childbirth, or the puerperium, unspecified as to episode of care or not applicable(649.10) 03/31/2009 Chronic hypertension with superimposed preeclamp vivek 03/31/2009 Abnormal quad screen 03/31/2009 HTN (hypertension) 03/23/2009 with history of 03/12/2009 , high-risk, maternal age 35+ multigrav malcolm 03/12/2009 Morbidly obese 03/12/2009 Overview (03/10/2022): 03/10/22 Fibroscan technically not possible. Immunizations Immunization Administration Dates Next Due TDAP (7yrs+) 04/02/2009 Family History Medical History Relation Name Comments Hypertension Brother Thyroid Disease Daughter Alcohol abuse Father Heart Disease Father Cancer - Breast Maternal Aunt 1 Cancer - Breast Maternal Aunt 2 Cancer - Breast Maternal Aunt 3 Arthritis - Rheumatoid Mother Cancer Mother Hypertension Mother Arthritis - Rheumatoid Sister Hypertension Sister Relation Name Status Comments Brother Daughter Other Father Maternal Aunt 1 Maternal Aunt 2 Maternal Aunt 3 Mother Sister Social History Tobacco Use Types Packs/Day Years Used Date Smoking Tobacco: Never Smokeless Tobacco: Never Tobacco Cessation:Counseling Given: Not Answered Alcohol Use Standard Drinks/Week Comments No 0 (1 standard drink = 0.6 oz pur e alcohol) PHQ-2 Answer Date Recorded Patient Health Questionnaire-2 Score 0 07/02/2023 Comments No Sex and Gender Information Value Date Recorded Sex Assigned at Not on file Legal Sex Female 7:37 AM RUBBER TIRE CURER Gender Identity Not on file Sexual Orientation Not on file Last Filed Vital Signs Vital Sign Reading Time Taken Comments Blood Pressure 121/97 07/11/2023 9:48 AM RUBBER TIRE CURER Pulse 54 07/11/2023 9:48 AM RUBBER TIRE CURER Temperature 36.7 C (98 F) 07/11/2023 9:48 AM RUBBER TIRE CURER Respiratory Rate 16 07/02/2023 10:35 AM RUBBER TIRE CURER Oxygen Saturation 99% 07/11/2023 9:48 AM RUBBER TIRE CURER Inhaled Oxygen Concentration - - Weight 106.1 kg (234 lb) 07/11/2023 9:48 AM RUBBER TIRE CURER Height 167.6 cm (5' 6) 07/11/2023 9:48 AM RUBBER TIRE CURER Body Mass Index 37.77 07/11/2023 9:48 AM RUBBER TIRE CURER Plan of Treatment Health Maintenance Due Date Last Done Comments COLOGUARD (AGES 45-75) - COLON CA SCREENING 1967 COLON MONITORING 1967 COLONOSCOPY - COLON CA SCREENING 1967 CT COLONOGRAPHY - COLON CA SCREENING 1967 Colorectal Cancer Screening 1967 FIT - COLON CA SCREENING 1967 FLEX SIG - COLON CA SCREENING 1967 HIV SCREENING 11/04/1982 HEPATITIS C SCREENING 10/31/1985 HEPATITIS B VACCINE (1 of 3 - 19+ 3-dose series) 11/04/1986 PAP SMEAR 11/04/1988 PNEUMOCOCCAL VACCINE 50+ (1 of 1 - PCV) 11/04/2017 ZOSTER VACCINE (1 of 2) 11/04/2017 DTAP/TDAP/TD VACCINES (2 - Td or Tdap) 04/02/2019 04/02/2009 COVID-19 VACCINE ( season) 2024 03/25/2021, 08/17/2020, 07/22/2020 DEPRESSION SCREENING 05/21/2024 07/02/2023 INFLUENZA VACCINE (#1) 2025 MAMMOGRAM 07/17/2025 07/17/2023, 06/22, 10/02/2022, Additional history exists LIPID TESTING 06/09/2026 06/09/2021 SCREENING FOR DIABETES 06/20/2026 , 06/20/2023, 10/05/2022, Additional history exists HIB VACCINE Aged Out No longer eligi ble based on patient's age to complete this topic HPV VACCINE Aged Out No longer eligi ble based on patient's age to complete this topic MENINGOCOCCAL (Group B) VACCINE SHARED DECISION-MAKING Aged Out No longer eligible based on patient's age to complete this topic MENINGOCOCCAL GROUPS A/C/Y/W VACCINE Aged Out No longer eligible based on patient's age to complete this topic Goals Goal Patient Goal Type Associated Problems Recent Progress Patient-Stated? Author Medication Management General Cheryl Montez, RN Note: Expected end date: ON GOING Interventions: Take all medications as prescribed Let your doctor know right away about any changes in your medications Make sure to request a refill of your medication at least one week prior to your last dose Procedures Procedure Name Priority Date/Time Associated Diagnosis Comments HEMOGLOBIN A1C Routine 10/05/2022 3:59 PM CDT Class 3 severe obesity with serious comorbidity and body mass index (BMI) of 40.0 to 44.9 in adult, unspecified obesity type MAMMO BILAT SCREENING W WINSOME Routine 10/02/2022 7:59 AM CDT Breast cancer screening by mammogram LIPID PROFILE 06/09/2021 8:01 AM RUBBER TIRE CURER from Last 3 Months or Most Recently Relevant to Health Maintenance Results * HEMOGLOBIN A1C (10/05/2022 3:59 PM CDT) Hemoglobin A1c 5.1 <=5.6 % 10/06/2022 8:46 AM CDT [facility] Estimated Average Glucose 100 mg/dL 10/06/2022 8:46 AM CDT [facility] Comment: HbA1c Interpretation: Normal : < 5.7% Pre-diabetes: 5.7-6.4% Diabetes: Equal to or greater than 6.5% Test results diagnostic of diabetes should be repeated for confirmation. Treatment target values recommended by ADA and other clinical organizations should be used to evaluate metabolic control in patients. Reference: [place] Diabetes Association, Standards of Care in Diabetes -2020 In patients 70 years and older consider HbA1c target range of 7.0-7.5% (Reference: Emeterio Simmons et al. JAMDA. 2012) The Sebia assay for the measurement of HbA1c is a National Glycohemoglobin Standardization Program (NGSP) certified method. Blood BLOOD SPECIMEN / Unknown Lab Venipuncture / Unknown 10/05/2022 3:59 PM CDT 10/05/2022 4:57 PM CDT us Castillo Ortega III, MD LAB - CHEMISTRY ORDERABLE S Final Result [address] [address], [facility] [phone] * MAMMO BILAT SCREENING W WINSOME (10/02/2022 7:59 AM CDT) Anatomical Region Laterality Modality Breast Bilateral Mammography 10/02/2022 1:35 PM CDT Impressions 10/02/2022 2:24 PM CDT : A focal asymmetry in the posterior central right breast is indeterminate and warrants further evaluation. RECOMMENDATION: Diagnostic right mammogram. If indicated at that time, right breast ultrasound will be performed. Patient will be contacted and scheduled to return for the additional imaging. OVERALL ASSESSMENT: BI-RADS CATEGORY 0: INCOMPLETE: NEED ADDITIONAL IMAGING EVALUATION. > Interpreting Provider: Lorena Pan MD on 10/02/2022 2:24 PM Narrative 10/02/2022 2:24 PM CDT EXAMINATION: DIGITAL MAMMO BILAT SCREENING W WINSOME AND WITH CAD LOCATION: [facility] EXAM DATE: 10/02/2022 HISTORY: Screening. RISK ASSESSMENT CALCULATION: Patient completed a breast cancer risk assessment during her appointment. Based upon the information she provided and her mammographic breast density, her lifetime risk of developing breast cancer is 11 % (Average Risk <15%; Intermediate / Moderate Risk 15-19; High Risk > 20%). COMPARISON: Comparison is made to prior mammogram dating back to 01/20/2014, including most recent bilateral mammogram of 08/03/2020. TECHNIQUE: Tomosynthesis (3D) and reconstructed synthetic 2-D images acquired and reviewed in the bilateral craniocaudal and mediolateral oblique projections. A total of 7 images obtained. Computer-aided detection (CAD) was utilized. BREAST PARENCHYMAL COMPOSITION: Category B: There are scattered areas of fibroglandular density. FINDINGS: Right breast: There is a focal asymmetry in the central right breast, posterior depth, located 12.5 cm deep to the nipple. This finding is most conspicuous on MLO slice 19/47 and cc slice 19/43. No additional mammographic findings of concern. Left breast: No mammographic evidence of left breast malignancy. No change compared to the prior exam. Castillo Ortega III, MD MAMMO ORDERABLES Final Re sult * (ABNORMAL) LIPID PROFILE (06/09/2021 8:01 AM RUBBER TIRE CURER) Cholesterol 266(H) 100 - 199 mg/dL [facility] INSURANCE BILL Triglycerides 54 0 - 149 mg/dL [facility] INSURANCE BILL HDL Cholesterol 70 >39 mg/dL [facility] INSURANCE BILL VLDL Calculated 8 5 - 40 mg/dL [facility] INSURANCE BILL LDL Calculated 188(H) 0 - 99 mg/dL [facility] INSURANCE BILL Comment NOT NEEDED [facility] INSURANCE BILL Comment: FASTING Ancillary determined the test is not needed. 06/09/2021 8:01 AM RUBBER TIRE CURER 06/09/2021 Narrative Resulting Agency Comment [facility] [address] [facility] [id number] Kenn Storm MD LAB - CHEMISTRY ORDERABLES nal Result [facility] INSURANCE BILL [address] [place] [address] from Last 3 Months or Most Recently Relevant to Health Maintenance Insurance MEDICAID - OUT [place] [address] [place] [address] [employer] Advance Directives * Full Code (Latest Code Status on File) Date Activated Date Inactivated Comments 03/31/2009 1:51 AM 04/03/2009 2:02 AM * Full Code Date Activated Date Inactivated Comments 03/31/2009 1:43 AM 03/31/2009 1:51 AM Care Teams Special Services Coordinator Relationship Specialty Start Date End Date Joana Freed PA-C [address] [place] [address] PCP - General Physician Reel Blade Bender Furnace Tender 10/05/22
--- OUTSIDE RECORDS SUMMARY | 2025-01-01 16:50 | XMS_ITS | Clinical Summary ---
Author Organization [facility] Address [address] [place] [address] Care Team Providers Care Television Technician Name Role Phone Joana Freed Primary Care Provider + Allergies Active Allergy Reactions Criticality Noted Date Comments Acetaminophen Swelling Medium 11/14/2019 Swelling Aspirin Stomach upset Low 07/16/2019 Chocolate Unknown 07/16/2019 Chocolate Flavor Other (See comments) Low 0 Other reaction(s): Unknown Other reaction(s): Unknown Codeine Swelling Medium 11/25/2019 Medications multivitamin tabletIndication s:Vitamin Deficiency Prevention Take 1 tablet by mouth daily before breakfast Active calcium carbonate/vitami n D3 (CALCIUM 500 + D ORAL) Take 1 tablet by mouth daily before breakfast Active acetaminophen (TYLENOL) 325 mg tablet Take 650 mg by mouth every 6 (six) hours as needed for pain Active docusate sodium (DOK) 100 mg tabletIndication s:constipation Take 1 tablet (100 mg total) by mouth 2 (two) times a day as needed for constipation 30 tablet 11/12/19 20 Active Additional Information Patient not taking.Reported on 01/30/2022 pen needle, diabetic (BD Ultra-Fine Short Pen Needle) 31 gauge x 5/16 needle BD Ultra-Fine Short Pen Needle 31 gauge x 5/16 USE DIRECTED Active omeprazole (PriLOSEC) 20 mg capsule Take 20 mg by mouth daily 07/16/19 22 Active semaglutide (Ozempic) 2 mg/dose (8 mg/3 mL) pen injector injection Ozempic 2 mg/dose (8 mg/3 mL) subcutaneous pen injector Active nystatin cream APPLY TOPICALLY TO THE AFFECTED AREA TWICE DAILY 03/28/20 22 Active benzonatate (TESSALON) 100 mg capsuleIndicatio ns:Cough Take 1 capsule (100 mg total) by mouth 3 (three) times a day as needed for cough 30 capsule 05/23/19 24 Active estradioL (ESTRACE) 0.01 % (0.1 mg/gram) vaginal cream Apply nightly to vagina for 1 week, then Sunday/Sunday / Sunday 42.5 g 5 04/28/20 24 Active estrogens, conjugated, (PREMARIN) vaginal cream Insert 0.5 g into the vagina 3 (three) times a week 30 g 3 04/28/20 24 Active albuterol HFA (PROVENTIL HFA,VENTOLIN HFA,PROAIR HFA) 90 mcg/actuation inhalerIndicatio ns:COVID with bronchospasm Inhale 2 puffs every 4 (four) hours as needed for wheezing 1 each 12/15/19 25 026 Active albuterol 2.5 mg /3 mL (0.083 %) nebulizer solution Take 3 mL (2.5 mg total) by nebulization every 6 (six) hours as needed for wheezing 75 mL 12/15/19 25 026 Active traMADoL (ULTRAM) 50 mg tablet Take 1 tablet (50 mg total) by mouth every 6 (six) hours 20 tablet 12/22/19 25 Active meloxicam (MOBIC) 15 mg tablet Take 1 tablet (15 mg total) by mouth daily 30 tablet 12/24/19 25 Active predniSONE (DELTASONE) 50 mg tablet Take 1 tablet (50 mg) by mouth daily for 5 days 5 tablet 12/22/19 25 025 Hospital, Clinic, or Other Facility Administered Medication Ordered Dose Route Frequency Start Date End Date Status BUPivacaine HCl (MARCAINE) 0.5 % (5 mg/mL) injection 4 mLIndications:Left knee pain, unspecified chronicity 4 mL OTHER One-Time Injection 12/23/2024 12/23/2024 Ended lidocaine (XYLOCAINE) 10 mg/mL (1 %) injection 4 mLIndications:Admi nistration of Local Anesthesia 4 mL One-Time Injection 12/23/2024 12/23/2024 Ended methylPREDNISolone acetate (DEPO-medrol) injection 80 mgIndications:Left knee pain, unspecified chronicity 80 mg intra-artic One-Time Injection 12/23/2024 12/23/2024 Ended Active Problems Problem Noted Date Diagnosed Date Upper respiratory tract infection 05/23/2023 Assessment & Plan (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): Likely viral PCR and throat culture pending Vital signs stable, no respiratory distress, nontoxic appearance, lungs CTAB on exam, 98% on RA Tessalon prn Supportive care, rest, clear sugar-free fluids (water), steam inhalation/humidifier OTC medications (Flonase, nasal saline, Zyrtec/Claritin, Mucinex/Delsym per package instructions) Return precautions discussed Incomplete uterovaginal prolapse 10/03/2022 Mixed stress and urge urinary incontinence 10/03 Laryngitis 06/27/2022 GERD (gastroesophageal reflux disease) Low back pain 06/27/2022 Swelling of eyelid 06/27/2022 Umbilical hernia 06/27/2022 Umbilical pain 06/27/2022 Clavicle pain 03/28/2022 Female cystocele 03/28/2022 Bronchitis 10/26/2020 Prolapse of anterior vaginal wall 10/31/2019 Overview (06/28/2022): A #4 ring pessary was fit today and was not expelled during testing. She reports that the pessary is comfortable. She was instructed and mastered how to remove and replace pessary.. If she is able to remove and clean her pessary, she will follow up with either her primary PICKLER HELPER or my office every 3 months for a pessary check. We discussed different management options of the patient's prolapse, and she strongly desires surgical management. I will route this note to the patient's urogyn specialty team for further management/planning. Lipoma 09/25/2017 BMI 40.0-44.9, adult 08/23/2017 Morbid (severe) obesity due to excess calories 0 08/23/2017 Primary osteoarthritis of left knee 08/23/2017 Panniculitis affecting back 03/26/2015 Vitamin D deficiency 09/10/2014 Abnormal quad screen 03/31/2009 Chronic hypertension with superimposed preeclamp vivek 03/31/2009 Primary hypertension 03/23/2009 Overview (06/27/2022): Added automatically from request for surgery [id number] with history of 03/12/2009 , high-risk, maternal age 35+ multigrav malcolm 03/12/2009 Encounters Date Type Department Care Team Description 12/23/2024 2:03 PM CDT - 12/23/2024 11:59 PM CDT Hospital Encounter [facility] [address] [place] [address] Left knee pain, unspecified chronicity Discharge Disposition: Discharge to home or self care 12/23/2024 2:00 PM CDT Office Visit [facility] Orthopaedic Surgery [address] [facility] 1[address] [place] [address] Jorge Mirza MD Left knee pain, unspecified chronicity (Primary Dx); Acute pain of left knee 12/21/2024 4:30 PM CDT - 12/21/2024 5:13 PM CDT Emergency [facility] Emergency Department [address] [place] [id number] Farrah Fitzgerald MD Acute pain of left knee (Primary Dx) Discharge Disposition: Discharge to home or self care 12/14/2024 4:49 PM CDT - 12/14/2024 5:27 PM CDT Emergency [facility] Emergency Department [address] [place] [address] Aleena Jaimes MD COVID (Primary Dx) Discharge Disposition: Discharge to home or self care 10/17/2024 7:00 AM CDT Lab [facility] Lab [address] [place] [id number] 10/17/2024 6:45 AM CDT Lab [facility] [address] [place] [id number] from Last 3 Months Immunizations Immunization Administration Dates Next Due MMR 07/28/2016,07/07/2015 Tdap 02/25/2013,04/02/2009 Surgical History Surgery Date Site/Laterality Comments CHOLECYSTECTOMY 05/21/1996 - 05/20/1997 SLEEVE GASTROPLASTY 05/21/2014 - 05/20/2015 OVARIAN CYSTECTOMY 05/21/1992 - 05/20/1993 HERNIA REPAIR 05/21/2015 - 05/20/2016 SKULL FRACTURE ELEVATION 05/21/1986 - 05/20/1987 LIPOMA RESECTION 05/21/2018 - 05/20/2019 Back Medical History Medical History Date Comments Weight loss PONV (postoperative nausea and vomiting) Hepatic steatosis Family History Medical History Relation Name Comments Heart attack Father Bladder Cancer Mother Heart attack Other sibling Anesthesia problems Neg Hx Relation Name Status Comments Father Mother Other sibling Alive Social History Tobacco Use Types Packs/Day Years Used Date Smoking Tobacco: Never Smokeless Tobacco: Never Tobacco Cessation:Counseling Given: Not Answered Alcohol Use Standard Drinks/Week Comments Never 0 (1 standard drink = 0.6 oz pur e alcohol) AUDIT-C Answer Date Recorded Q1: How often do you have a drink containing alc ohol? Never 07/16/2019 Average Number of Drinks Not on file 020 Frequency of Binge Drinking Not on file 06/22 Hunger Vital Sign Answer Date Recorded Within the past 12 months, y ou worried that your food would run out before you got the money to buy more. Patient declined Within the past 12 months, t he food you bought just didn't last and you didn't have money to get more. Patient declined Personal Safety Answer Date Recorded Have you ever been in or are you currently in a harmful physical or emotional relationship or is someone making you feel afraid or unsafe? 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 Gender Identity Not on file Sexual Orientation Not on file Obstetrics History Para Term AB IAB SAB Ectopic Multiple Livin g Live Births 6 4 4 2 2 4 4 Date Outcome GA Total Labor Labor/2nd/3rd Weight Sex Type Anes PTL [place] A1 A5 Name Clin SAB SAB Term Vaginal Living Term Vaginal Living Term Vaginal Living Term Vaginal Living Last Filed Vital Signs Vital Sign Reading Time Taken Comments Blood Pressure 162/87 12/21/2024 2:17 PM CDT Pulse 77 12/21/2024 2:17 PM CDT Temperature 36.4 C (97.6 F) 12/21/2024 2:17 PM CDT Respiratory Rate 18 12/21/2024 2:17 PM CDT Oxygen Saturation 99% 12/21/2024 2:17 PM CDT Inhaled Oxygen Concentration - - Weight 116.9 kg (257 lb 11.5 oz) 12/21/2024 2:17 PM CDT Height 167.6 cm (5' 6) 12/21/2024 2:17 PM CDT Body Mass Index 41.6 12/21/2024 2:17 PM CDT Plan of Treatment Health Maintenance Due Date Last Done Comments Cervical Cancer Screening 1965 Colon Cancer Screening-Colonoscopy 1965 Depression Screening 1967 Regular Well Visit/Exam 18-64 11/04/1985 Zoster Vaccine (1 of 2) 11/04/2017 DTaP/Tdap/Td Vaccine (3 - Td or Tdap) 02/25/2023 02/25/2013, 04/02/2009 Breast Cancer Screening-Mammogram 07/17/2024 07/17/2023, 10/02/2022, 10/02/2022, Additional history exists Influenza Vaccine (#1) 2025 Hepatitis B Screening Completed 04/01/2022 Hepatitis C Screening Completed 04/01/2022 Pneumococcal vaccine <65 Aged Out No longer eligible based on patient's age to complete this topic Procedures Procedure Name Priority Date/Time Associated Diagnosis Comments XR KNEE LEFT 3 VIEWS Schedule Routine, Read Routine (OP Routine) 12/23/2024 2:08 PM CDT Left knee pain, unspecified chronicity MD ARTHROCENTESIS ASPIR&/INJ MAJOR JT/BURSA W/O US Routine 12/23/2024 2:00 PM CDT Left knee pain, unspecified chronicity XR KNEE LEFT 3 VIEWS ED 12/21/2024 2:54 PM CDT ECG 12-LEAD STAT 12/14/2024 4:04 PM CDT XR CHEST 1 VIEW ED 12/14/2024 4:00 PM CDT STREPTOCOCCUS GROUP A PCR STAT 12/14/2024 3:59 PM CDT INFLUENZA A/B, RSV, AND COVID-19 PCR STAT 12/14/2024 3:59 PM CDT DIFFERENTIAL AUTO STAT 12/14/2024 3:5 8 PM CDT CBC WITH AUTO DIFFERENTIAL STAT 12/14/2024 3:58 PM CDT EGFR STAT 12/14/2024 3:57 PM CDT PRO B-TYPE NATRIURETIC PEPTIDE STAT 12/14/2024 3:57 PM CDT TROPONIN T HIGH-SENSITIVITY SERIES (BASELINE, 2HR, 4HR, 6HR) STAT 12/14/2024 3:57 PM CDT COMPREHENSIVE METABOLIC PANEL STAT 12/14/2024 3:57 PM CDT EGFR Routine 10/17/2024 7:00 AM CDT EGFR Routine 10/17/2024 7:00 AM CDT DIFFERENTIAL AUTO Routine 10/17/2024 7:0 0 AM CDT COMPREHENSIVE METABOLIC PANEL Routine 10/17/2024 7:00 AM CDT VITAMIN A Routine 10/17/2024 7:00 AM CDT VITAMIN E Routine 10/17/2024 7:00 AM CDT VITAMIN K Routine 10/17/2024 7:00 AM CDT IRON PROFILE W/ IBC Routine 10/17/2024 7 :00 AM CDT CBC WITH AUTO DIFFERENTIAL Routine 10/17/2024 7:00 AM CDT COMPREHENSIVE METABOLIC PANEL Routine 10/17/2024 7:00 AM CDT MAGNESIUM Routine 10/17/2024 7:00 AM CDT FOLATE Routine 10/17/2024 7:00 AM CDT FERRITIN Routine 10/17/2024 7:00 AM CDT VITAMIN B12 Routine 10/17/2024 7:00 AM CDT VITAMIN B1 Routine 10/17/2024 7:00 AM CDT SCREENING MAMMOGRAM BILATERAL W [place] Schedule Routine, Read Routine (OP Routine) 07/17/2023 3:26 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 Moderate, patellofemoral predominant tricompartmental osteoarthritis of the left knee with a small joint effusion. Dictated by: Bailey Metcalf MD The radiology attending physician has personally reviewed this study, and had reviewed and/or edited this written report and agrees with it. Electronically signed by: Nikolas Lazaro MD Narrative 12/23/2024 6:25 PM CDT EXAMINATION: XR KNEE LEFT 3 VIEWS HISTORY: 59-year-old woman with 4 days of left knee pain FINDINGS: 3 radiographs of the left knee were submitted for evaluation with comparison to the radiographs from 12/21/2024 and 01/06/2024 Moderate, patellofemoral predominant tricompartmental osteoarthritis of the left knee. Small joint effusion. No radiopaque foreign bodies. Procedure Note Kimberlyn Lazaro MD - 12/23/2024 EXAMINATION: XR KNEE LEFT 3 VIEWS HISTORY: 59-year-old woman with 4 days of left knee pain FINDINGS: 3 radiographs of the left knee were submitted for evaluation with comparison to the radiographs from 12/21/2024 and 01/06/2024 Moderate, patellofemoral predominant tricompartmental osteoarthritis of the left knee. Small joint effusion. No radiopaque foreign bodies. IMPRESSION: 1. Moderate, patellofemoral predominant tricompartmental osteoarthritis of the left knee with a small joint effusion. Dictated by: Bailey Metcalf MD The radiology attending physician has personally reviewed this study, and had reviewed and/or edited this written report and agrees with it. Electronically signed by: Nikolas Lazaro MD us Jorge Mirza MD IMG XR PROCEDURES Anya l Result * MD ARTHROCENTESIS ASPIR&/INJ MAJOR JT/BURSA W/O US (12/23/2024 2:00 PM CDT) Narrative Jorge Mirza MD - 12/23/2024 2:00 PM CDT Jorge Mirza MD 12/23/2024 2:49 PM Large Joint Injection: L knee Performed by: Jorge Mirza MD Authorized by: Jorge Mirza MD Large Joint Injection/Aspiration: Consent Given by: Patient Site marked: the procedure site was marked Timeout: prior to procedure the correct patient, procedure, and site was verified Verbal consent obtained: Yes Written consent obtained: No Supporting Documentation: Indications: Pain Procedure Details: Location: Knee Site: L knee Prep: patient was prepped and draped in usual sterile fashion Prep: patient was prepped using a clean technique Needle Size: 21 G Approach: Anterolateral Ultrasound guided: No Medications: 80 mg methylPREDNISolone acetate 40 mg/mL; 4 mL lidocaine 10 mg/mL (1 %); 4 mL BUPivacaine HCl 0.5 % (5 mg/mL) Patient tolerance: Patient tolerated the procedure well with no immediate complications The risks and benefits of the injection were discussed with the patient, including but not limited to the risks of injection site reaction, pain, swelling, incomplete relief of symptoms and the potential risk for infection. The patient elected to proceed with the injection after all questions were answered. us Jorge Mirza MD IN CLINIC/BEDSIDE [facility] Final Result * XR Knee Left 3 Vw (12/21/2024 2:54 PM CDT) Anatomical Region Laterality Modality Lower Extremities, Knee Left Computed Radiography 12/21/2024 3:15 PM CDT Narrative 12/21/2024 3:16 PM CDT EXAM DESCRIPTION: XR KNEE LEFT 3 VIEWS REASON FOR STUDY: acute pain Pt reports L knee pain for 3 days. Denies injury. States there may be slight swelling. TECHNIQUE: 3 radiographic view(s) of the left knee . COMPARISON: 01/06/2024 FINDINGS: The alignment is normal. There is no acute fracture. Mild tricompartmental knee osteoarthritis. No aggressive bone lesions. Mild osteopenia. No knee effusion. IMPRESSION: No acute osseous abnormality. THIS IS AN ELECTRONICALLY VERIFIED FINAL REPORT 12/21/2024 3:16 PM - Electronically signed by Regan Hinojosa M.D. AT: AT Report ID: [id number] Reading Location: [id number] Procedure Note Regan Hinojosa MD - 12/21/2024 EXAM DESCRIPTION: XR KNEE LEFT 3 VIEWS REASON FOR STUDY: acute pain Pt reports L knee pain for 3 days. Denies injury. States there may beslight swelling. TECHNIQUE: 3 radiographic view(s) of the left knee . COMPARISON: 01/06/2024 FINDINGS: The alignment is normal. There is no acute fracture. Mild tricompartmental knee osteoarthritis. No aggressive bone lesions. Mild osteopenia. No knee effusion. IMPRESSION: No acute osseous abnormality. THIS IS AN ELECTRONICALLY VERIFIED FINAL REPORT 12/21/2024 3:16 PM - Electronically signed by Regan Hinojosa M.D. AT: AT Report ID: [id number] Reading Location: [id number] us Farrah Fitzgerald MD IMG XR PROCEDURES Anya l Result * ECG 12 lead (12/14/2024 4:04 PM CDT) Ventricular Rate EKG/Min 70 BPM [facility] Atrial Rate 70 BPM [facility] MD-Interval (MSEC) 172 ms [facility] QRS-Interval (MSEC) 96 ms [facility] QT-Interval (MSEC) 388 ms [facility] QTc 419 ms [facility] P [place] 53 degrees [facility] R [place] -13 degrees [facility] T [place] 41 degrees [facility] Diagnosis Normal sinus rhythm Minimal voltage criteria for LVH, may be normal variant Borderline ECG No previous ECGs available Confirmed by MIMA NARANJO M.D. ([id number]) on 12/15/2024 1:00:57 PM [facility] 12/14/2024 4:04 PM CDT 12/15/2024 1:00 PM CDT us Aleena Jaimes MD ECG ORDERABLES Final Resul t [facility] * XR Chest 1 Vw Portable (If patient hemodynamically UNstable or UNable to ambulate) (12/14/2024 4:00PM CDT) Anatomical Region Laterality Modality Body, Chest N/A Computed Radiogr aphy 12/14/2024 4:22 PM CDT Narrative 12/14/2024 5:35 PM CDT EXAM DESCRIPTION: XR CHEST 1 VIEW REASON FOR STUDY: Shortness of breath Pt reports Over the past three weeks I have been feeling under the weather. I've had some congestion, diarrhea, cough, sore throat, weakness, and my chest and back have been hurting. TECHNIQUE: Frontal radiographic view(s) of the chest. COMPARISON: 06/18/2020 FINDINGS: LUNGS: Mild bibasilar atelectasis. No focal confluence pulmonary parenchymal consolidation, romain pulmonary edema,, pleural effusion, or pneumothorax. HEART/MEDIASTINUM: Cardiac silhouette is at the upper limits of normal in size. Mediastinal and hilar contours appear normal. LINES/TUBES: None. BONES: No acute osseous abnormality. IMPRESSION: No acute cardiopulmonary abnormality. THIS IS AN ELECTRONICALLY VERIFIED FINAL REPORT 12/14/2024 5:35 PM - Electronically signed by Regan Hinojosa M.D. AT: AT Report ID: [id number] Reading Location: [id number] Procedure Note Regan Hinojosa MD - 12/14/2024 EXAM DESCRIPTION: XR CHEST 1 VIEW REASON FOR STUDY: Shortness of breath Pt reports Over the past three weeks I have been feeling under theweather. I've had some congestion, diarrhea, cough, sore throat, weakness, and mychest and back have been hurting. TECHNIQUE: Frontal radiographic view(s) of the chest. COMPARISON: 06/18/2020 FINDINGS: LUNGS: Mild bibasilar atelectasis. No focal confluencepulmonary parenchymal consolidation, romain pulmonary edema,, pleural effusion, or pneumothorax. HEART/MEDIASTINUM: Cardiac silhouette is at the upper limits of normal in size. Mediastinal and hilar contours appear normal. LINES/TUBES: None. BONES: No acute osseous abnormality. IMPRESSION: No acute cardiopulmonary abnormality. THIS IS AN ELECTRONICALLY VERIFIED FINAL REPORT 12/14/2024 5:35 PM - Electronically signed by Regan Hinojosa M.D. AT: AT Report ID: [id number] Reading Location: [id number] Aleena Jaimes MD IMG XR PROCEDURES Final Res ult * (ABNORMAL) Influenza A/B, RSV, and COVID-19 PCR Nasopharyngeal (12/14/2024 3:59 PM CDT) [facility] COVID-19 RNA Positive(A) Negative Comment:Testing performed by : [address] [address] Influenza A RNA Negative Negative [facility] Comment:Testing performed by : [address], [place]., [address] Influenza B RNA Negative Negative [facility] Comment:Testing performed by : [address] [address] RSV RNA Negative Negative [facility] Comment: Interpretive data: Testing performed by [facility]. This test is performed using the [employer] Xpert Xpress CoV-2/Flu/RSV plus assay. This is a multiplex, real-time reverse transcriptase PCR assay intended for the qualitative detection of nucleic acid from SARS-CoV-2, influenza A, influenza B, and respiratory syncytial virus. This assay has been cleared by the [place] Food and Drug administration. The performance characteristics have been verified by the [facility]. Results must be considered in the clinical context, and a negative result does not rule out infection. Interpretive Data last revised 2023 Testing performed by: [address] [address] Nasopharyngeal 12/14/2024 3: 59 PM CDT 12/14/2024 4:07 PM CDT Narrative [facility] - 12/14/2024 5:06 PM CDT Is the Patient experiencing symptoms consistent with COVID?->Yes Aleena Jaimes MD LAB MICROBIOLOGY - GENERAL ORDERABLES Final Result [facility] [address] [facility] Department of Laboratories [place], [place] [id number] * Streptococcus Group A PCR Throat (12/14/2024 3:59 PM CDT) [facility] Strep A DNA Not Detected Not Detected Comment: This test is performed using the [employer] Xpert Group A Streptococcal Assay. This is a qualitative, real-time PCR assay that detects Group A Strep using throat specimens from patients suspected of having streptococcal pharyngitis. This assay does not detect other beta-hemolytic streptococci including Group C or Group G. Group C and G have been associated with pharyngitis and, occasionally, acute nephritis but do not cause rheumatic fever. If suspected, order Throat Culture, Routine. This assay has been cleared by the [place] Food and Drug Administration, and its performance characteristics have been verified by the performing laboratory. Testing performed by: [address] [address] Throat 12/14/2024 3:59 PM CDT 12/14/2024 4:08 PM CDT us Aleena Jaimes MD LAB MICROBIOLOGY - GENERAL ORDERABLES Final Result [facility] [address] [facility] Department [place] [address] * Differential, auto (12/14/2024 3:58 PM CDT) Pathologist [facility] Neutrophil abs 3.93 1.50 - 6.50 K/cumm Comment:Testing performed by : [address] [address] Imm gran abs 0.01 0.00 - 0.10 K/cumm [facility] Comment:Testing performed by : [address] [address] Lymphocyte abs 1.33 0.80 - 3.30 K/cumm [facility] Comment:Testing performed by : [address] [address] Monocyte abs 0.46 0.20 - 0.80 K/cumm [facility] Comment:Testing performed by : [address] [address] Eosinophil abs 0.14 0.00 - 0.50 K/cumm [facility] Comment:Testing performed by : [address] [address] Basophil abs 0.03 0.00 - 0.10 K/cumm [facility] Comment:Testing performed by : [address] [address] Neutrophil pct 66.6 % [facility] Comment: Interpretive Data Percent cell count reference ranges are not reported, since discordance with absolute values may lead to misinterpretation of CBC data. Current Interpretive Data was last revised on 2017. Testing performed by: [address] [address] Imm gran pct 0.2 % [facility] Comment: Interpretive Data Percent cell count reference ranges are not reported, since discordance with absolute values may lead to misinterpretation of CBC data. Current Interpretive Data was last revised on 2017. Testing performed by: [address] [address] Lymphocyte pct 22.5 % [facility] Comment: Interpretive Data Percent cell count reference ranges are not reported, since discordance with absolute values may lead to misinterpretation of CBC data. Current Interpretive Data was last revised on 2017. Testing performed by: [address] [address] Monocyte pct 7.8 % [facility] Comment: Interpretive Data Percent cell count reference ranges are not reported, since discordance with absolute values may lead to misinterpretation of CBC data. Current Interpretive Data was last revised on 2017. Testing performed by: [address] [address] [address] Eosinophil pct 2.4 % [facility] Comment: Interpretive Data Percent cell count reference ranges are not reported, since discordance with absolute values may lead to misinterpretation of CBC data. Current Interpretive Data was last revised on 2017. Testing performed by: [address] [address] Basophil pct 0.5 % [facility] Comment: Interpretive Data Percent cell count reference ranges are not reported, since discordance with absolute values may lead to misinterpretation of CBC data. Current Interpretive Data was last revised on 2017. Testing performed by: [address] [address] Blood 12/14/2024 3:58 PM CDT 12/14/2024 4:07 PM CDT Aleena Jaimes MD LAB BLOOD ORDERABLES Final Result [facility] [address] [facility] Department [place] [address] * (ABNORMAL) CBC with auto differential (12/14/2024 3:58 PM CDT) WBC 5.90 3.80 - 9.90 K/cumm Comment:Testing performed by : [address] [address] Hgb 11.5(L) 11.9 - 15.5 g/dL BOBBI Comment:Testing performed by : [address] [address] Hct 35.2(L) 35.6 - 45.5 % BOBBI Comment:Testing performed by : [address] [address] Plt 209 150 - 400 K/cumm BOBBI Comment:Testing performed by : [address] [address] MPV 11.0 9.1 - 12.3 fL [facility]BI Comment:Testing performed by : [address] [address] RBC 4.29 3.90 - 5.20 M/cumm BOBBI Comment:Testing performed by : [address] [address] MCV 82.1 81.3 - 96.4 fL [facility]OBBI Comment:Testing performed by : [address] [address] MCH 26.8(L) 27.1 - 33.3 pg BOBBI Comment:Testing performed by : [address] [address] MCHC 32.7 32.3 - 35.7 g/dL B[facility]BI Comment:Testing performed by : [address] [address] RDW CV 15.3(H) 11.1 - 14.9 % [facility]OBBI Comment:Testing performed by : [address] [address] RDW SD 45.2 35.7 - 48.1 fL BOBBI SAUNDERS Comment:Testing performed by : [facility], [address] [place] [address]., [address] NRBC abs 0.00 0.00 - 0.01 K/cumm BOBBI SAUNDERS Comment:Testing performed by : [address] [address] Blood 12/14/2024 3:58 PM CDT 12/14/2024 4:07 PM CDT Aleena Jaimes MD LAB BLOOD ORDERABLES Final Result Performing Organization Address [facility] de Phone Number [address] [place] [address] * Troponin T high-sensitivity series (baseline, 2hr, 4hr, 6hr) (12/14/2024 3:57 PM CDT) [facility] Trop T hs <6 <=14 ng/L Comment: Interpretive Data For further hscTnT resources including the diagnostic algorithm and an aid in interpretation, copy and paste this link: [email or web address].testcatalog.org/show/[email or web address] Current Interpretive Data last revised 2020. Testing performed by: [facility], [address] [place] [address]., [address] Blood 12/14/2024 3:57 PM CDT 12/14/2024 4:07 PM CDT us Aleena Jaimes MD LAB BLOOD ORDERABLES Final Result Performing Organization Address [facility] Co de Phone Number [address]UN[address] [place] [address] * eGFR (12/14/2024 3:57 PM CDT) [facility] eGFR >90 >=60 mL/min/1. 73 m2 Comment: Interpretive Data Reference Interval Normal >/= 90 mL/min/1.73m2 Mildly decreased* 60 - 89 mL/min/1.73m2 Mildly to moderately decreased 45 - 59 mL/min/1.73m2 Moderately to severely decreased 30 - 44 mL/min/1.73m2 Severely decreased 15 - 29 mL/min/1.73m2 Kidney Failure < 15 mL/min/1.73m2 *Relative to young adult level Estimated glomerular filtration rate is determined by the 2020 CKD-EPI equation recommended by the National Kidney Foundation (A Unifying Approach to GFR Estimation: Recommendations of the NKF-ASK Task Force on Reassessing the Inclusion of Race in Diagnosing Kidney Disease, JASN 2020). The CKD-EPI equation should not be used for patients with unstable renal function and has not been validated in children and those over 70. Current interpretive data was last reviewed 2021. Testing performed by: [facility], [address] [place] [address], [place]., [address] Blood 12/14/2024 3:57 PM CDT 12/14/2024 4:07 PM CDT Aleena Jaimes MD LAB BLOOD ORDERABLES Final Result [facility] [address] [facility] Department [place] [address] * Pro B-type natriuretic peptide (12/14/2024 3:57 PM CDT) NT-proBNP 142 <=300 pg/mL Comment: Interpretive Comments: A. Dyspnea in Acute Care Setting All Ages: < 300 pg/ml, acute heart failure unlikely. < 50 yrs: 300 - 450 pg/ml, further investigation warranted. > 450 pg/ml, acute heart failure likely. 50 - 74 yrs: 300 - 900 pg/ml, further investigation warranted. > 900 pg/ml, acute heart failure likely . > or = 75 yrs: 450 - 1800 pg/ml, further investigation warranted. > 1800 pg/ml, acute heart failure likely. B. Non-acute Setting < 75 yrs < 125 pg/ml, rules out heart failure. > or = 125 pg/ml, further investigation warranted. > or = 75 yrs < 450 pg/ml, rules out heart failure. > or = 450 pg/ml, further investigation warranted. - Knowledge of each individual patient's NT-proBNP range may be more useful than using similar cut-points for every patient. Please note that marked elevations in NT-proBNP levels may be observed in state other than Left Ventricular Congestive Failure, including: acute coronary syndromes, right heart strain/failure (including pulmonary embolism and cor pulmonale), critical illness, renal failure, as well as advanced age. - References: 1. Rl HOWELL et.al. Eur Heart J. 2006:27:330-337. 2. Otis RW, Sudheer AM. J. AM Yahir Cardiol: Cardiovasc Imag. 2009;2: 216- 225. Interpretive Data Last Revised Date: 2018. Testing performed by: [address] [address] Blood 12/14/2024 3:57 PM CDT 12/14/2024 4:07 PM CDT Aleena Jaimes MD LAB BLOOD ORDERABLES Final Result [facility] Department [place] [address] * (ABNORMAL) Comprehensive metabolic panel (12/14/2024 3:57 PM CDT) Sodium 138 135 - 145 mmol/L Comment:Testing performed by : [address] [address] Potassium, pl 3.3 3.3 - 4.9 mmol/L BOBBI Comment:Testing performed by : [address] [address] Chloride 105 97 - 110 mmol/L BOBBI Comment:Testing performed by : [address] [address] CO2 21(L) 22 - 32 mmol/L BOBBI SAUNDERS Comment:Testing performed by : [address] [address] Anion gap 12 2 - 15 mmol/L BOBBI Comment:Testing performed by : [address] [address] BUN 9 6 - 25 mg/dL BOBBI SAUNDERS Comment:Testing performed by : [address] [address] Creatinine 0.60 0.60 - 1.10 mg/dL [facility] Comment:Testing performed by : [address] [address] Glucose 129 70 - 199 mg/dL [facility] Comment: Interpretive Data Fasting glucose >/= 126 mg/dl is diagnostic for diabetes. Fasting is defined as no caloric intake for at least 8 hours. Fasting glucose between 100 mg/dl to 125 mg/dl is diagnostic of prediabetes. In a patient with classic symptoms of hyperglycemia or hyperglycemic crisis, a random glucose >/= 200 mg/dl is diagnostic for diabetes. In the absence of unequivocal hyperglycemia, results should be confirmed by repeat testing. The classification and Diagnosis of Diabetes Diabetes Care 202; 46: S19-S40. Current interpretive data was last revised 2022. Testing performed by: [address] [address] Calcium 8.6 8.5 - 10.3 mg/dL [facility] Comment:Testing performed by : [address] [address] Bilirubin, total 0.4 0.1 - 1.2 mg/dL [facility] Comment:Testing performed by : [address] [address] Protein, pl 7.3 6.5 - 8.5 g/dL [facility] Comment:Testing performed by : [address] [address] Albumin 3.9 3.5 - 5.0 g/dL [facility] Comment:Testing performed by : [address] [address] Alk phos 186(H) 40 - 130 Units/L [facility] Comment:Testing performed by : [address] [address] ALT 47(H) 7 - 45 Units/L [facility] Comment:Testing performed by : [address] [address] AST 56(H) 10 - 45 Units/L [facility] Comment:Testing performed by : [address] [address] Blood 12/14/2024 3:57 PM CDT 12/14/2024 4:07 PM CDT us Aleena Jaimes MD LAB BLOOD ORDERABLES Final Result Performing Organization Address [facility] Co de Phone Number BOBBI [address] [address] * eGFR (10/17/2024 7:00 AM CDT) eGFR >90 >=60 mL/min/1. 73 m2 Comment: Interpretive Data Reference Interval Normal >/= 90 mL/min/1.73m2 Mildly decreased* 60 - 89 mL/min/1.73m2 Mildly to moderately decreased 45 - 59 mL/min/1.73m2 Moderately to severely decreased 30 - 44 mL/min/1.73m2 Severely decreased 15 - 29 mL/min/1.73m2 Kidney Failure < 15 mL/min/1.73m2 *Relative to young adult level Estimated glomerular filtration rate is determined by the 2020 CKD-EPI equation recommended by the National Kidney Foundation (A Unifying Approach to GFR Estimation: Recommendations of the NKF-ASK Task Force on Reassessing the Inclusion of Race in Diagnosing Kidney Disease, JASN 2020). The CKD-EPI equation should not be used for patients with unstable renal function and has not been validated in children and those over 70. Current interpretive data was last reviewed 2021. Testing performed by: [facility], [address] [place] [address]., [address] Blood 10/17/2024 7:00 AM CDT 10/17/2024 7:32 AM CDT us Physician No LAB BLOOD ORDERABLES Final Resul t Performing Organization Address City/[facility]/ZIP Co de Phone Number BOBBI [address] [employer] [place] [address] * eGFR (10/17/2024 7:00 AM CDT) eGFR >90 >=60 mL/min/1. 73 m2 Comment: Interpretive Data Reference Interval Normal >/= 90 mL/min/1.73m2 Mildly decreased* 60 - 89 mL/min/1.73m2 Mildly to moderately decreased 45 - 59 mL/min/1.73m2 Moderately to severely decreased 30 - 44 mL/min/1.73m2 Severely decreased 15 - 29 mL/min/1.73m2 Kidney Failure < 15 mL/min/1.73m2 *Relative to young adult level Estimated glomerular filtration rate is determined by the 2020 CKD-EPI equation recommended by the National Kidney Foundation (A Unifying Approach to GFR Estimation: Recommendations of the NKF-ASK Task Force on Reassessing the Inclusion of Race in Diagnosing Kidney Disease, JASN 2020). The CKD-EPI equation should not be used for patients with unstable renal function and has not been validated in children and those over 70. Current interpretive data was last reviewed 2021. Testing performed by: [address] [address] Blood 10/17/2024 7:00 AM CDT 10/17/2024 7:33 AM CDT us Kathi Ibanez MD LAB BLOOD ORDERABLES Anya brown Result [facility] [address] [facility] Department [place] [address] * Differential, auto (10/17/2024 7:00 AM CDT) Neutrophil abs 3.00 1.50 - 6.50 K/cumm Comment:Testing performed by : [address] [address] Imm gran abs 0.02 0.00 - 0.10 K/cumm BOBBI Comment:Testing performed by : [address] [address] Lymphocyte abs 2.31 0.80 - 3.30 K/cumm BOBBI Comment:Testing performed by : [address] [address] Monocyte abs 0.38 0.20 - 0.80 K/cumm BOBBI Comment:Testing performed by : [address] [address] Eosinophil abs 0.03 0.00 - 0.50 K/cumm BOBBI Comment:Testing performed by : [address] [address] Basophil abs 0.04 0.00 - 0.10 K/cumm BOBBI Comment:Testing performed by : [address] [address] Neutrophil pct 51.9 % [facility] Comment: Interpretive Data Percent cell count reference ranges are not reported, since discordance with absolute values may lead to misinterpretation of CBC data. Current Interpretive Data was last revised on 2017. Testing performed by: [address] [address] Imm gran pct 0.3 % [facility] Comment: Interpretive Data Percent cell count reference ranges are not reported, since discordance with absolute values may lead to misinterpretation of CBC data. Current Interpretive Data was last revised on 2017. Testing performed by: [address] [address] Lymphocyte pct 40.0 % [facility] Comment: Interpretive Data Percent cell count reference ranges are not reported, since discordance with absolute values may lead to misinterpretation of CBC data. Current Interpretive Data was last revised on 2017. Testing performed by: [address] [address] Monocyte pct 6.6 % [facility] Comment: Interpretive Data Percent cell count reference ranges are not reported, since discordance with absolute values may lead to misinterpretation of CBC data. Current Interpretive Data was last revised on 2017. Testing performed by: [address] [address] Eosinophil pct 0.5 % [facility] Comment: Interpretive Data Percent cell count reference ranges are not reported, since discordance with absolute values may lead to misinterpretation of CBC data. Current Interpretive Data was last revised on 2017. Testing performed by: [address] [address] Basophil pct 0.7 % [facility] Comment: Interpretive Data Percent cell count reference ranges are not reported, since discordance with absolute values may lead to misinterpretation of CBC data. Current Interpretive Data was last revised on 2017. Testing performed by: [address] [address] Blood 10/17/2024 7:00 AM CDT 10/17/2024 7:32 AM CDT us Physician No LAB BLOOD ORDERABLES Final Resul t Performing Organization Address [facility] de Phone Number [address] [employer] [place] [address] * (ABNORMAL) Iron profile w/ IBC (10/17/2024 7:00 AM CDT) Pathologist [facility] Iron 52 35 - 145 mcg/dL Comment:Testing performed by : [address] [address] TIBC 412(H) 250 - 400 mcg/dL BOBBI Comment:Testing performed by : [address] [address] Transferrin saturation 13(L) 20 - 50 % BOBBI Comment:Testing performed by : [address] [address] Blood 10/17/2024 7:00 AM CDT 10/17/2024 7:32 AM CDT Physician No LAB BLOOD ORDERABLES Final Resul t Performing Organization Address [facility] de Phone Number [address] [place] [address] * (ABNORMAL) CBC with auto differential (10/17/2024 7:00 AM CDT) Pathologist [facility] WBC 5.78 3.80 - 9.90 K/cumm Comment:Testing performed by : [address] [address] Hgb 11.7(L) 11.9 - 15.5 g/dL [facility]OBBI Comment:Testing performed by : [address] [place] [address] Hct 35.7 35.6 - 45.5 % [facility] Comment:Testing performed by : [address], [address] Plt 201 150 - 400 K/cumm BOBBI Comment:Testing performed by : [address] [address] MPV 12.1 9.1 - 12.3 fL [facility] Comment:Testing performed by : [address], [address] RBC 4.33 3.90 - 5.20 M/cumm BOBBI Comment:Testing performed by : [address], [address] MCV 82.4 81.3 - 96.4 fL [facility] Comment:Testing performed by : [address] [address] MCH 27.0(L) 27.1 - 33.3 pg [facility]BI Comment:Testing performed by : [address], [address] MCHC 32.8 32.3 - 35.7 g/dL [facility] Comment:Testing performed by : [address], [address] RDW CV 15.2(H) 11.1 - 14.9 % [facility] Comment:Testing performed by : [address], [address] RDW SD 46.3 35.7 - 48.1 fL [facility] Comment:Testing performed by : [address], [address] NRBC abs 0.00 0.00 - 0.01 K/cumm BOBBI Comment:Testing performed by : [address], [address] Blood 10/17/2024 7:00 AM CDT 10/17/2024 7:32 AM CDT us Physician No LAB BLOOD ORDERABLES Final Resul t BOBBI [address] [address] * (ABNORMAL) Vitamin A (10/17/2024 7:00 AM CDT) Pathologist [facility] Vitamin A 25.1(L) 32.5 - 78.0 mcg/dL [facility] Comment: ADDITIONAL INFORMATION This test was developed and its performance characteristics determined by [facility] in a manner consistent with CLIA requirements. This test has not been cleared or approved by the U.S. Food and Drug Administration. Test Performed by: [facility] [address] Conference Coordinator: Gurvinder Yang Ph.D.; CLIA# [id number] Testing performed by: [facility], [address] [place] [address]., [address] Blood 10/17/2024 7:00 AM CDT 10/17/2024 7:33 AM CDT us Physician No LAB BLOOD ORDERABLES Final Resul t BOBBI [address] [address] [facility] * (ABNORMAL) Vitamin K (10/17/2024 7:00 AM CDT) [facility] Phylloquinone (Vit K) 0.09(L) 0.10 - 2.20 ng/mL [facility] Comment: ADDITIONAL INFORMATION This test was developed and its performance characteristics determined by [facility] in a manner consistent with CLIA requirements. This test has not been cleared or approved by the U.S. Food and Drug Administration. Test Performed by: [facility] [address] Conference Coordinator: Gurvinder Yang Ph.D.; CLIA# [id number] Testing performed by: [facility], [address] [place] [address]., [address] Blood 10/17/2024 7:00 AM CDT 10/17/2024 7:32 AM CDT us Physician No LAB BLOOD ORDERABLES Final Resul t Performing Organization Address [facility] de Phone Number BOBBI [address] [employer] [place] [address] [facility] * Vitamin E (10/17/2024 7:00 AM CDT) Tocopherol (Vit E) 10.2 5.5 - 17.0 mg/L [facility] Comment: ADDITIONAL INFORMATION This test was developed and its performance characteristics determined by [facility] in a manner consistent with CLIA requirements. This test has not been cleared or approved by the U.S. Food and Drug Administration. Test Performed by: [facility] [address] Conference Coordinator: Gurvinder Yang Ph.D.; CLIA# [id number] Testing performed by: [facility], [address] [place] [address]., [address] Blood 10/17/2024 7:00 AM CDT 10/17/2024 7:33 AM CDT us Physician No LAB BLOOD ORDERABLES Final Resul t Performing Organization Address [facility] de Phone Number BOBBI [address] [address] [facility] * Vitamin B1 (10/17/2024 7:00 AM CDT) Thiamine (Vit B1) 131 70 - 180 nmol/L [facility] Comment: ADDITIONAL INFORMATION This test was developed and its performance characteristics determined by [facility] in a manner consistent with CLIA requirements. This test has not been cleared or approved by the U.S. Food and Drug Administration. Test Performed by: [facility] [address] [place] [address] Conference Coordinator: Gurvinder Yang Ph.D.; CLIA# [id number] Testing performed by: [address] [address] Blood 10/17/2024 7:00 AM CDT 10/17/2024 7:33 AM CDT us Physician No LAB BLOOD ORDERABLES Final Resul t Performing Organization Address [facility] Co de Phone Number BOBBI [address] [employer] [place] [address] [facility] * Magnesium (10/17/2024 7:00 AM CDT) Magnesium 2.0 1.4 - 2.5 mg/dL Comment:Testing performed by : [address] [address] Blood 10/17/2024 7:00 AM CDT 10/17/2024 7:32 AM CDT Physician No LAB BLOOD ORDERABLES Final Resul t Performing Organization Address [facility] Co de Phone Number DESHAUN[address] [employer] [place] [address] * (ABNORMAL) Folate (10/17/2024 7:00 AM CDT) Folic acid 3.8(L) >=5.0 ng/mL Comment:Testing performed by : [address] [address] Blood 10/17/2024 7:00 AM CDT 10/17/2024 7:33 AM CDT us Physician No LAB BLOOD ORDERABLES Final Resul t Performing Organization Address [facility] Co de Phone Number DESHAUN[address] [address] * Ferritin (10/17/2024 7:00 AM CDT) Ferritin 17 15 - 150 ng/mL Comment:Testing performed by : [address] [address] Blood 10/17/2024 7:00 AM CDT 10/17/2024 7:32 AM CDT Physician No LAB BLOOD ORDERABLES Final Resul t Performing Organization Address [facility] Co de Phone Number [address] [address] * (ABNORMAL) Vitamin B12 (10/17/2024 7:00 AM CDT) Pathologist [facility] Vitamin B12 1,740(H) 230 - 1,250 pg/mL Comment:Testing performed by : [address] [address] Blood 10/17/2024 7:00 AM CDT 10/17/2024 7:33 AM CDT us Physician No LAB BLOOD ORDERABLES Final Resul t Performing Organization Address [facility] Co de Phone Number [address] [address] * (ABNORMAL) Comprehensive metabolic panel (10/17/2024 7:00 AM CDT) Sodium 140 135 - 145 mmol/L Comment:Testing performed by : [address] [address] Potassium, pl 3.9 3.3 - 4.9 mmol/L [facility]OB[facility] SAUNDERS Comment:Testing performed by : [address] [address] Chloride 108 97 - 110 mmol/L [facility] SAUNDERS Comment:Testing performed by : [address], [place]., [address] CO2 23 22 - 32 mmol/L [facility] Comment:Testing performed by : [address] [address] Anion gap 9 2 - 15 mmol/L [facility] Comment:Testing performed by : [address], [place]., [address] BUN 13 6 - 25 mg/dL [facility] Comment:Testing performed by : [address], [place]., [address] Creatinine 0.57(L) 0.60 - 1.10 mg/dL [facility] Comment:Testing performed by : [address], [place]., [address] Glucose 98 70 - 199 mg/dL B[facility] Comment: Interpretive Data Fasting glucose >/= 126 mg/dl is diagnostic for diabetes. Fasting is defined as no caloric intake for at least 8 hours. Fasting glucose between 100 mg/dl to 125 mg/dl is diagnostic of prediabetes. In a patient with classic symptoms of hyperglycemia or hyperglycemic crisis, a random glucose >/= 200 mg/dl is diagnostic for diabetes. In the absence of unequivocal hyperglycemia, results should be confirmed by repeat testing. The classification and Diagnosis of Diabetes Diabetes Care 202; 46: S19-S40. Current interpretive data was last revised 2022. Testing performed by: [address] [address] Calcium 9.2 8.5 - 10.3 mg/dL B[facility] Comment:Testing performed by : [address] [address] Bilirubin, total 0.3 0.1 - 1.2 mg/dL [facility] Comment:Testing performed by : [address] [address] Protein, pl 7.5 6.5 - 8.5 g/dL [facility] Comment:Testing performed by : [address] [address] Albumin 3.9 3.5 - 5.0 g/dL [facility] Comment:Testing performed by : [address] [address] Alk phos 204(H) 40 - 130 Units/L [facility] Comment:Testing performed by : [address] [address] ALT 57(H) 7 - 45 Units/L [facility] Comment:Testing performed by : [address] [address] AST 57(H) 10 - 45 Units/L [facility] Comment:Testing performed by : [address], [address] Blood 10/17/2024 7:00 AM CDT 10/17/2024 7:33 AM CDT Kathi Ibanez MD LAB BLOOD ORDERABLES Anya l Result [facility] [address] [facility] [place] [address] * (ABNORMAL) Comprehensive metabolic panel (10/17/2024 7:00 AM CDT) Sodium 141 135 - 145 mmol/L Comment:Testing performed by : [address], [address] Potassium, pl 3.9 3.3 - 4.9 mmol/L BOBBI Comment:Testing performed by : [address] [address] Chloride 109 97 - 110 mmol/L B[facility] Comment:Testing performed by : [address], [address] CO2 23 22 - 32 mmol/L BOB[facility] Comment:Testing performed by : [address], [address] Anion gap 9 2 - 15 mmol/L [facility] Comment:Testing performed by : [address], [address] BUN 12 6 - 25 mg/dL [facility] Comment:Testing performed by : [address], [address] Creatinine 0.60 0.60 - 1.10 mg/dL [facility] Comment:Testing performed by : [address] [address] Glucose 94 70 - 199 mg/dL [facility] Comment: Interpretive Data Fasting glucose >/= 126 mg/dl is diagnostic for diabetes. Fasting is defined as no caloric intake for at least 8 hours. Fasting glucose between 100 mg/dl to 125 mg/dl is diagnostic of prediabetes. In a patient with classic symptoms of hyperglycemia or hyperglycemic crisis, a random glucose >/= 200 mg/dl is diagnostic for diabetes. In the absence of unequivocal hyperglycemia, results should be confirmed by repeat testing. The classification and Diagnosis of Diabetes Diabetes Care 2021; 46: S19-S40. Current interpretive data was last revised 2022. Testing performed by: [address] [address] Calcium 9.0 8.5 - 10.3 mg/dL BOBBI Comment:Testing performed by : [address] [address] Bilirubin, total 0.4 0.1 - 1.2 mg/dL [facility] Comment:Testing performed by : [address] [address] Protein, pl 7.5 6.5 - 8.5 g/dL B[facility]BI Comment:Testing performed by : [address] [address] Albumin 3.9 3.5 - 5.0 g/dL B[facility] Comment:Testing performed by : [address] [address] Alk phos 195(H) 40 - 130 Units/L [facility] Comment:Testing performed by : [address] [address] ALT 44 7 - 45 Units/L BOBBI Comment:Testing performed by : [address] [address] AST 51(H) 10 - 45 Units/L BOBBI Comment:Testing performed by : [address] [address] Blood 10/17/2024 7:00 AM CDT 10/17/2024 7:32 AM CDT us Physician No LAB BLOOD ORDERABLES Final Resul t [facility] [address] [facility] Department [place] [address] * Screening Mammogram Bilateral W Alden (07/17/2023 3:26 PM SHELL SHOP SUPERVISOR) Anatomical Region Laterality Modality Breast Bilateral Mammography Impressions 07/18/2023 7:46 AM SHELL SHOP SUPERVISOR BI-RADS ATLAS category (overall): 1 - Negative There is no mammographic evidence of malignancy. A 1 year screening mammogram is recommended. The patient has been or will be contacted. We recommend annual screening mammography for women at average risk of breast cancer beginning at age 40, based on guidelines of the [employer] (ACR Practice Parameter for the Performance of Screening and Diagnostic Mammography) and [employer]. For women with and elevated risk of breast cancer, please refer to the ACR Practice Parameter for specific screening recommendations. The patient will be entered into a reminder system with a target due date of 1 year for her next screening exam. Narrative 07/18/2023 7:46 AM SHELL SHOP SUPERVISOR Screening Mammogram Bilateral W Alden: 07/17/23 The study was acquired using full field digital technology and interpreted from soft copy. 2D digital mammographic views, as well as 3D digital tomosynthesis were performed in the CC and MLO projections. CLINICAL: Screening mammogram, encounter for. No relevant medical history has been documented for this patient. No known family history of breast cancer. COMPARISONS: 10/11/2022 Diagnostic Mammogram Right W Alden 10/02/2022 Screening Mammogram Bilateral W Alden 08/03/2020 Diagnostic Mammogram Bilateral W Alden 05/20/2015 Screening Mammogram Bilateral W Alden BREAST TISSUE: The breasts have scattered areas of fibroglandular density. FINDINGS: There is no new suspicious finding in either breast on mammogram. us Self Screening Mammogram IMG MAMMO PROCEDURES Fi nal Result * Hepatitis C antibody (04/01/2022 2:57 PM SHELL SHOP SUPERVISOR) Hep C Ab Nonreactive Nonreactive [facility] Comment: Interpretive Data Nonreactive: Antibodies to HCV not detected. Does NOT exclude the possibility of recent exposure to HCV. Equivocal: Equivocal for HCV antibodies. Supplemental molecular testing will be automatically performed to determine infection status in accordance with current CDC screening recommendations. Reactive: Positive for HCV antibodies. This may represent current or past HCV infection. Supplemental molecular testing will be automatically performed to determine current infection status in accordance with current CDC screening recommendations. Interpretive data was last revised on 2019. Blood 04/01/2022 2:57 PM SHELL SHOP SUPERVISOR 04/01/2022 4:31 PM SHELL SHOP SUPERVISOR us Kathi Ibanez MD LAB MICROBIOLOGY - GENERA L ORDERABLES Final Result [facility] [address] [facility] Department [place] [address] from Last 3 Months or Most Recently Relevant to Health Maintenance Additional Health Concerns Infection Onset Date Last Indicated COVID: Recovered Comment:Added based on recent COVID infection. 12/24/2024 025 [place] [id number] [facility] H[facility]/PPO Address[facility] [id number] [place] [address] [facility] Advance Directives For more information, please contact: [phone] * Full Code (Latest Code Status on File) Date Activated Date Inactivated Comments 11/12/2019 5:41 PM 11/13/2019 6:51 PM Care Teams Television Technician Relationship Specialty Start Date End Date Joana Freed PA PCP - General Physician Fish Egg Packer 04/14/22
--- OUTSIDE RECORDS SUMMARY | 2025-01-01 16:50 | XMS_ITS | Encounter Summary ---
Author Organization [facility] Address [address] [place] [id number] Care Team Providers Care Fur Dry Cleaner Name Role Phone Yisel Chavez RN Primary Care Provider Unavailable Elizabeth Randle MD Primary Care Provider [phone] Joana Freed PA-C Primary Care Provider [phone] Encounter Details Date Type Department Care Team (Late st Contact Info) Description 06/20/2017 Hosp Visit [facility] Outpatient [place] [address] Anderson Bobo, PT STUDENT Social History Tobacco Use Types Packs/Day Years Used Date Smoking Tobacco: Never Assessed Comments Unknown Sex and Gender Information Value Date Recorded Sex Assigned at Not on file Legal Sex Female 8:33 PM CDT Gender Identity Not on file Sexual Orientation Not on file documented as of this encounter Progress Notes * Anderson Bobo, PT STUDENT - 06/20/2017 1:26 PM CST 06/20/2017 Patient cancelled today's physical therapy sessions secondary to hip pain, and is waiting to hear what the doctor wants her to do. Cosigned by Talita Dillon PT at 06/20/2017 1:55 PM RIVER CROSSING SUPERVISOR R CROSSING SUPERVISOR R CROSSING SUPERVISOR documented in this encounter Plan of Treatment Not on file documented as of this encounter Visit Diagnoses Not on filedocumented in this encounter Care Teams Fur Dry Cleaner Relationship Specialty Start Date End Date Yisel Chavez APNP, RN PCP - General 03/11/16 9 Elizabeth Randle MD [facility] [address] [place] [id number] PCP - General FAMILY PRACTICE 06/24/18 06/20/23 Joana Freed PA-C [facility] [address] [place] [id number] PCP - General NURSE PRACTITIONER 06/21/23 documented as of this encounter
== END 2025-01-01 16:40 | disposition home or self-care (01) ==
LOC: ANHLAB 16:47
PROVIDERS: PCP Physician Assistant; Visit Provider Surgery Plastic and Reconstructive Surgery
DX: S71.101A Unspecified open wound, right thigh, initial encounter (principal); X58.XXXA Exposure to other specified factors, initial encounter
CPT/HCPCS: 87070; 87075

== ENCOUNTER 2025-05-04 14:22 | Emergency (ER) | payer OTHER, SELFPAY ==
[2025-05-04 14:30] VITALS: BP 163/73; PULSE 72; RESP 16; TEMP 36.7; O2SAT 100
--- NOTE | 2025-05-04 15:38 | ED_ITS ---
HPI - General Adult General Chief complaint: Allergic Reaction Stated complaint: ALLERGIC REACTION Time Seen by Provider: 05/04/25 15:00 Source: patient and RN notes reviewed Mode of arrival: ambulatory Limitations: no limitations History of Present Illness HPI narrative: 59-year-old female presents Express Care complaining possible skin rash. Patient said it has been going on approximately 1 week, she saw her primary last week the put her on prednisone. She said it did not improve. She reports the rash is spreading, she reports that is on her trunk, neck, and face. Patient also reports that is very pruritic. Patient denies any pain, fevers, nausea, vomiting, diarrhea, upper respiratory symptoms, chest pain difficulty breathing, or any other symptoms. Patient denies any recent travel or hiking. Patient denies any recent sick symptoms. Related Data Home Medications ?Medication ?Instructions ?Recorded ?Confirmed ?Last Taken ?Type multivitamin 1 tablet PO DAILY 11/08/23 1 07/05/24 Unknown History albuterol sulfate 2.5 mg/3 mL mg 05/04/25 Unknown His tory (0.083 %) solution for nebulization albuterol sulfate 90 mcg/actuation inhalation 05/04/25 Unknown History aerosol inhaler cetirizine 10 mg tablet mg 05/04/25 Unknown History cholestyramine (with sugar) 4 gram ea 05/04/25 Unknow n History oral powder prednisone 20 mg tablet mg 05/04/25 Unknown History tirzepatide (weight loss) 2.5 mg subcut 05/04/25 Unkn own History mg/0.5 mL subcutaneous pen injector (Zepbound) triamcinolone acetonide 0.1 % applic topical 05/04/25 Unknown History topical cream Allergies Allergy/AdvReac Type Severity Reaction Status Date / Time codeine Allergy Intermediate Rash Verified 05/04/25 14:28 aspirin AdvReac Mild Nausea and Verified 05/04/25 14:28 Vomiting Review of Systems Review of Systems: CONSTITUTIONAL: Denies fever, chills, or sweats. EYES: Denies visual changes, redness, or discharge. ENT: Denies rhinorrhea, congestion, sore throat, or otalgia. CARDIOVASCULAR: Denies chest pain, palpitations, or edema. RESPIRATORY: Denies cough or dyspnea. GASTROINTESTINAL: Denies abdominal pain, nausea, vomiting, or diarrhea. GENITOURINARY: Denies dysuria or hematuria. SKIN: Positive for rash and itching. MUSCULOSKELETAL: Denies back pain, joint pain, or myalgia. NEUROLOGIC: Denies headache, numbness, or weakness. PSYCHIATRIC: Denies anxiety or depression. All other systems reviewed are negative, except as documented in HPI. PMFSH Social History Social History Smoking status: Never smoker Living arrangements: with family Spiritual care concerns: No Comments At the time of my signature, I reviewed and agree with the nursing past medical, surgical, social, and family history. There is no relevant family history pertinent to the patient complaint. Exam Narrative: GENERAL: This is a well-nourished, well-developed adult, in no apparent distress. They are non ill-appearing, nontoxic appearing. HEAD: normocephalic, atraumatic. EYES: Sclera clear/white. Conjunctiva normal. Vision is grossly intact. Extraocular movements intact EARS: External ears normal, Hearing grossly intact. NOSE: External nose normal THROAT: Mucous membranes moist, NECK: Neck supple, CARDIOVASCULAR: Regular rate and rhythm RESPIRATORY: Respiratory rate normal, respiratory effort nonlabored, no respiratory distress SKIN: Erythematous papular/vesicular rash scattered throughout the patient's face, neck, trunk. They vary in size approximately 1 cm x 0.5 cm each. No area of fluctuance, no induration, nontender to palpate, no exudate. NEURO: awake, alert, and oriented to person, place and time. There were no obvious focal neurologic abnormalities. EXTREMITIES: No joint tenderness, effusion, or edema noted. BACK: Nontender without deformity. Course Course Level of Care: Express Care Visit Vital Signs Vital signs: Vital Signs Temperature 98.0 F 05/04/25 14:30 Pulse Rate 72 05/04/25 14:30 Respiratory Rate 16 05/04/25 14:30 Blood Pressure 163/73 H 05/04/25 14:30 Pulse Oximetry 100 05/04/25 14:30 Oxygen Delivery Room Air 05/04/25 14:30 Temperature 98.0 F 05/04/25 14:30 Pulse Rate 72 05/04/25 14:30 Respiratory Rate 16 05/04/25 14:30 Blood Pressure 163/73 H 05/04/25 14:30 Pulse Oximetry 100 05/04/25 14:30 Oxygen Delivery Room Air 05/04/25 14:30 MDM MDM Narrative Medical decision making narrative: Rash does not appear consistent with hives, currently on prednisone with no improvement. Patient's is more lesions are developing no resolution of previous lesions, lesions appear unchanged, no evidence of infection. Appears patient may have insect bites. Discussed supportive care with patient recommend antihistamines hydrocortisone cream. Advised close follow-up with PCP. Discussed physical exam findings. Advised supportive measures and signs/symptoms to go to the ER. Pt is appropriate for outpt treatment and f/u. Differential Diagnosis Differential Diagnosis: Insect bites, allergic reaction, hives, viral illness, selene-crosti syndrome Critical Care Time Critical Care Time Critical Care Time: No Discharge Plan Discharge Clinical Impression: Rash, skin Patient Disposition: Home Condition: Stable Instructions: Insect Bite or Sting (ED), Acute Rash (ED) Additional Instructions: Continue to take your prednisone as prescribed. Apply hydrocortisone cream to the affected lesions twice a day for week. Take Zyrtec/Claritin twice a day. Follow-up PCP in 3-5 days. If you develop any worsening redness, swelling, discharge, fevers, breathing problems, or any other concerns please go to the ER immediately. It may be bug bites, or another underlying skin condition. Can also look up Gianotti-Crosti syndrome which is a benign skin condition that sometimes occurs after viral illnesses, it is a benign skin condition that is self-limiting and normally resolves in 2 weeks to 2 months. Patient Language: German Prescriptions: No Action albuterol sulfate 2.5 mg /3 mL (0.083 %) solution for nebulization cetirizine 10 mg tablet prednisone 20 mg tablet triamcinolone acetonide 0.1 % cream TOPICAL albuterol sulfate 90 mcg/actuation HFA aerosol inhaler INHALATION cholestyramine (with sugar) 4 gram powder Zepbound 2.5 mg/0.5 mL pen injector SUBCUT multivitamin Tablet 1 tablet PO DAILY Follow-up/Referrals: [facility] [Primary Care Provider, Unknown] Stand Alone Forms: Work/School Release IP Time of Disposition: 15:20
== END 2025-05-04 15:23 | disposition home or self-care (01) ==
DX: R21 Rash and other nonspecific skin eruption (principal); K76.0 Fatty (change of) liver, not elsewhere classified; Z86.16 Personal history of COVID-19
CPT/HCPCS: 99211; G0463